=== PATIENT | male | born 1950 | race Caucasian/White ===

== ENCOUNTER 2023-12-02 13:45 | Inpatient (IN) | payer MEDICARE, BC, SELFPAY ==
[2023-12-02] VITALS (9 sets, daily range): BP systolic 126–150; BP diastolic 56–93; BMI 28.9
--- NOTE | 2023-12-02 14:25 | HPS.HSE ---
Addendum entered and electronically signed by Da Menon MD 12/03/23 16:50:
I saw and examined the patient.
The PA's note was reviewed and I agree with the note.
Comment:
I met with Mr. Grant at the bedside, significant multivessel CAD with proximal LAD involvement. Was found to have an abnormal stress test, then found to be in afib, underwent LHC and was found to have significant disease with 99% lesion in the
proximal LAD. He is asymptomatic and denies any chest pain or pressure on our consultation. We discussed the risks and benefits of surgical revascularization. I offered CABG x 3 with concomitant LA MAZE and ÁLVARO Exclusion. He accepts the risks
associated with surgery and wishes to move forward. I plan to put him on with me for tomorrow with send time of 10am.
Thank you for involving me in the care of this patient. Please feel free to contact me with any questions or concerns.
Da Menon MD, MS
Cardiothoracic Surgeon
[facility]
This dictation was created using the [employer] dictation system. Please excuse any grammatical, typographical, or 'sound alike' errors.
Original Note:
Family Physician
-
Family Physician: None
Fashion Buyer: Saul
Chief Complaint
-
Atrial Fibrillation
History of Present Illness
73-year-old male with past medical history of atrial fibrillation s/p ablation at [place] on Xarelto was seen by his education rn a few weeks ago and was found to be in atrial fibrillation. Due to the atrial fibrillation patient was scheduled for
cardioversion today, however, given his history patient was taken for a left heart cath today. 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
mm in diameter), there is a 99% mid LAD lesion right after the takeoff of the first large diagonal branch and a 80% apical LAD stenosis, 50 to 60% long diffuse tubular mid left circumflex lesion, and 60% proximal RCA, and 70% mid RCA stenosis. Due
to these findings patient was transferred to [facility] for CABG evaluation.
Medical History
Past Medical History
Past Medical History: Reports Arrhythmia and CAD
Past Surgical History: Reports Other
Additional Past Surgical History:
ablation in 2021
ankle surgery
Social History
Tobacco: Non-smoker
Alcohol: Occasional
Drug: None
Personal:
Living: With Family
Employment: Retired
Family History
Family History: Diabetes
Allergies / Home Medications
Allergies reflects when Allergies were last updated in [facility].
Home Medications with original date entered in [facility]
Allergy/Medication List:
None
Review of Systems
-
History Source: Patient
A 12 point ROS was completed and negative except as noted: Yes
Constitutional: Reports No Symptoms
EENT: Reports No Symptoms
Respiratory: Reports No Symptoms
Cardiac: Reports No Symptoms
Abdomen/GI: Reports No Symptoms
: Reports No Symptoms
Musculoskeletal: Reports No Symptoms
Skin: Reports No Symptoms
Neurological: Reports No Symptoms
Endocrine: Reports No Symptoms
Hematologic/Lymphatic: Reports No Symptoms
Psych: Reports No Symptoms
Physical Exam
Vital Signs
Vital Signs
Temp Resp Pulse Ox
98.0 F 18 98
12/02/23 14:00 12/02/23 14:00 12/02/23 14:00
Physical Exam
General: Well Developed
HEENT: NormoCephalic
Respiratory: Clear
Cardiac: S1/S2
Breast: N/A
GI: Soft and Other (Obese)
Rectal: Deferred by Provider
Genito-urinary: Deferred by me
Musculoskeletal: No Clubbing
Skin: Warm and Dry
Neuro: AO x 3 and No Motor Deficits
Hematologic/Lymphatic: No Lymphadenopathy
Psych: Calm
Laboratory Results
-
Active Medications
Acetaminophen (Acetaminophen 325 Mg Tablet) 650 mg PO Q4HPRN PRN
PRN Reason: mild pain/REBOLLAR/temp> 100.4F
Stop: 12/30/23 12:56
Al Hydrox/Mg Hydrox/Simethicone (Mag/Al/Simethicone Suspension 30 Ml Cup) 30 ml PO Q6HPRN PRN
PRN Reason: Heartburn
Stop: 12/30/23 12:56
Albuterol/Ipratropium (Ipratropium 0.5/Albuterol 3 Mg (3 Ml Ampul)) 3 ml INH R Q4HPRN PRN; Protocol
PRN Reason: shortness of breath
Aspirin (Aspirin 81 Mg Chewable Tablet) 81 mg PO DAILY STEF
Stop: 12/31/23 07:59
Atorvastatin Calcium (Atorvastatin (Lipitor) 80 Mg Tablet) 80 mg PO QPM STEF
Stop: 12/30/23 17:59
Magnesium Hydroxide (Milk Of Magnesia 30 Ml Cup) 15 ml PO HSPRN PRN
PRN Reason: constipation
Stop: 12/30/23 12:56
Ondansetron HCl (Ondansetron 4 Mg/2 Ml Vial) 4 mg IV Q6HPRN PRN
PRN Reason: nausea and vomiting
Stop: 12/30/23 12:56
Polyethylene Glycol (Polyethylene Glycol Powder 17 Grams Packet) 17 grams PO DAILY STEF
Stop: 12/31/23 07:59
Sennosides (Sennosides (Senokot) 8.6 Mg Tablet) 8.6 mg PO BID STEF
Stop: 12/30/23 19:59
Vital Signs
Temp Pulse Resp BP Pulse Ox
98.0 F 65 18 142/88 98
12/02/23 14:00 12/02/23 15:45 12/02/23 14:00 12/02/23 15:00 12/02/23 15:30
I&O
11/30/23 12/01/23 12/02/23 12/03/23
06:59 06:59 06:59 06:59
Intake Total 500 / 500
Balance 500 / 500
Lab Results
12/02/23 15:34
12/02/23 15:34
PT 13.3 Sec (11.4-14.6) 12/02/23 15:34
INR 1.03 12/02/23 15:34
APTT 30.8 Sec (23.4-35.0) 12/02/23 15:34
Impression/Plan
-
IMPRESSION:
73-year-old male transferred from [facility] for CABG evaluation after left heart cath.
PLAN:
#CAD
-Patient's case will be discussed with attending physician. Further details regarding surgical timing intervention will be determined after attending physicians full evaluation.
-Routine preoperative cardiothoracic surgery orders will be initiated.
-STS risk stratification score will be calculated after preoperative testing is complete
-Continue heparin gtt
- Monitor for CP; if CP occurs will start NTG gtt
- Stat EKG
-Continue aspirin and Lipitor
-Was previously on Jardiance but it was discontinued 3 days ago
- Cardiology consulted
#Atrial fibrillation
-Continue Cardizem p.o.
-Continue heparin drip
-Previously on Xarelto; last dose 2 to 3 days ago per patient
-Per patient, he was initiated on Tikosyn at home but only took 1 dose.
--- NOTE | 2023-12-02 14:50 | CON.CAR ---
Addendum entered and electronically signed by Cisco Sears MD 12/02/23 16:20:
I saw and examined the patient.
The METALLURGY TEACHER or PA's note was reviewed and I agree with the note.
Comment: General: Well developed, well nourished in NAD.
Neck: Supple, no JVD, HJR, carotids +2 B/L, no bruits bilaterally.
Heart: Non displaced PMI, irregular, no murmurs, No S3, S4, no rubs.
Lungs: Clear to auscultation bilaterally, no wheeze, rhonchi, rubs bilaterally,
normal expiratory phase.
Extremities: No clubbing, cyanosis or edema bilaterally.
Neuro: Grossly nonfocal, awake, alert and oriented x3.
Chirag has a history of persistent atrial fibrillation on chronic Xarelto, sick sinus syndrome, carotid artery stenosis. He was found to be back in A-fib for the first time since his ablation in March 2022. He was arranged for testing which
included a stress test which was abnormal. His model maker wanted to start him on flecainide but due to abnormal stress test he underwent cardiac catheterization. He is found to have multivessel disease with left main disease and transferred to
[place] for bypass.
Stable cardiology status for bypass surgery. Await CT surgery evaluation. Atrial fibrillation will need to be addressed after revascularization.
Original Note:
Consultation
Consultation Request
Date/Time Consultation Requested: 12/02/2023
Date/Time Consultation Performed: 12/02/2023 at 1500
Requesting Provider: Dr. Menon
Performing Provider: Dr. Sears
Reason for Consultation: [facility] transfer for CABG eval
Medical History
-
History of Present Illness:
HPI: Chirag is a 73 year old male with PMH of persistent atrial fibrillation w/ prior PVI, SSS, carotid artery stenosis, and gout who presented to [facility] as a transfer from [facility] for CABG evaluation. He states he was seen by his model maker for a routine
appointment and was found to be back in atrial fibrillation for the first time since his ablation. He was arranged for testing including a stress test which was abnormal. His primary model maker, Dr. Yip had wanted to start him on Flecainide
as antiarrhythmic, although due to abnormal stress test, needed to exclude coronary disease. He was then arranged for cardiac catheterization today, 12/02/2023 at [facility]. He was round to have multi-vessel disease and was transferred to for CABG
evaluation. He reports he has been active at baseline without limitations and has been asymptomatic both with his afib and with his coronary disease. He feels well currently and denies any chest pain, palpitations, dizziness, or SOB.
PMH:
Persistent atrial fibrillation
prior PVI @ [facility] 04/23/2022
Chronic Xarelto anticoagulation
SSS
Carotid artery stenosis
Colon polyps
Gout
Past Medical History
Past Medical History: Other (In HPI)
Past Surgical History: Cardiac (PVI 2021, [facility] 12/02/2023)
Social History
Tobacco: Non-Smoker
Alcohol: Occasional
Drug: None
Personal:
Living: With Family
Family History
Family History: Reviewed & Not Pertinent
Review of Systems
-
History Source: Patient
All other systems: Negative unless noted
Physical Exam
Vital Signs
Temp Resp Pulse Ox
98.0 F 18 98
12/02/23 14:00 12/02/23 14:00 12/02/23 14:00
Physical Exam
General: Well Developed, Well Nourished and No Apparent Distress
HEENT: Normocephalic, Anicteric and Moist Mucous Membranes
Respiratory: Non Labored Respirations
Cardiac: S1/S2 and Irregular Rhythm
Musculoskeletal: No Clubbing, No Cyanosis and No Edema
Skin: Warm and Dry
Neuro: AO x 3 and Nonfocal/Grossly Intact
Psych: Calm
Impression / Plan
-
Wellness Nurse Rn: Dr. Yip ([facility])
Impression:
Abnormal stress test
MV CAD by cath @[facility] 12/02/2023
Persistent atrial fibrillation
prior PVI @ [facility] 04/23/2022
Chronic Xarelto anticoagulation
SSS
Carotid artery stenosis
Colon polyps
Gout
Echo @[facility] 11/19/2023: EF 57%, trace AR, mild MR, cannot exclude left to right shunting
Lexiscan stress test @[facility] 11/21/2023: Perfusion imaging abnormal with reversible inferoapical defect. Localized apical wall motion with exercise is absent with rest. Imaging consistent with localized inferoapical ischemia.
LHC @[facility] 12/02/2023: Multivessel CAD. Left main: 70% distal left main stenosis. 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 LAD: 99% mid LAD stenosis right after the takeoff of the first large diagonal branch. 80% apical LAD
stenosis. LCx: 50 to 60% long diffuse tubular mid LCx stenosis. RCA: 50% ostial RCA stenosis with 50 to 60% proximal RCA disease. 70% mid RCA lesion just after the takeoff of the RV branch. 50 to 60% distal RCA lesion.
Plan:
-Seen by primary model maker for routine OP follow up and found to be back in afib for the first time since prior PVI in 2021. Stress test and echo ordered for evaluation w/ results as noted above.
-There was consideration to start patient on flecainide, however due to abnormal stress test, was arranged for cath to rule out coronary disease.
-He had LHC at [facility] 12/02/2023 which revealed MV CAD as outlined above. Transferred to for CABG evaluation.
-CT surgery evaluation ongoing.
-Remains in persistent atrial fibrillation on review of telemetry. HR stable on current medications, continue Cardizem 240mg daily.
-On Xarelto for anticoagulation as OP. Continue heparin drip while awaiting CABG. Aspirin 81mg daily started in addition given coronary disease.
-Continue high intensity statin and zetia. LDL 46.
-He is asymptomatic with both his afib and coronary disease. Remains pain free.
-Check EKG
HPI: Chirag is a 73 year old male with PMH of persistent atrial fibrillation w/ prior PVI, SSS, carotid artery stenosis, and gout who presented to [facility] as a transfer from [facility] for CABG evaluation. He states he was seen by his model maker for a routine
appointment and was found to be back in atrial fibrillation for the first time since his ablation. He was arranged for testing including a stress test which was abnormal. His primary model maker, Dr. Yip had wanted to start him on Flecainide
as antiarrhythmic, although due to abnormal stress test, needed to exclude coronary disease. He was then arranged for cardiac catheterization today, 12/02/2023 at [facility]. He was round to have multi-vessel disease and was transferred to for CABG
evaluation. He reports he has been active at baseline without limitations and has been asymptomatic both with his afib and with his coronary disease. He feels well currently and denies any chest pain, palpitations, dizziness, or SOB.
Data Reviewed
-
Labs: Labs Reviewed by me
Old Records: Reviewed
[2023-12-02 15:47] LABS: Hematocrit 43.4 % (39.0-52.0); Hemoglobin 14.7 g/dL (13.0-18.0); Mean Corp Hgb Conc. 33.9 g/dL (33.0-37.0); Mean Corpuscular Hgb 31.7 pg (27.0-31.0); Mean Corpuscular Volume 93.7 fL (80.0-94.0); Mean Platelet Volume 10.8 fL (7.4-10.4); Platelet Count 162 10^3/uL (130-400); Red Blood Cell Count 4.63 10^6/uL (4.70-6.10); White Blood Cell Count 6.6 10^3/uL (4.8-10.8)
[2023-12-02 15:57] LABS: INR 1.03; PT 13.3 Sec (11.4-14.6)
[2023-12-02 15:58] LABS: APTT 30.8 Sec (23.4-35.0)
[2023-12-02 15:59] LABS: ALT (SGPT) 16 U/L (0-50); AST (SGOT) 18 U/L (17-59); Alkaline Phosphatase 60 U/L (38-126); Blood Urea Nitrogen 14 mg/dl (9-20); Carbon Dioxide 26 mmol/L (22-30); Chloride 108 mmol/L (98-107); Estimated Creatinine Clearance 111 ml/min; Glucose 103 mg/dl (70-99); HDL Cholesterol 49 mg/dl; LDL Cholesterol, Calculated 46 mg/dl; Magnesium 2.1 mg/dl (1.6-2.3); Sodium 138 mmol/L (135-145); Total Bilirubin 0.8 mg/dl (0.2-1.3); Total Cholesterol 146 mg/dl (50-199); Total Protein 6.4 g/dl (6.3-8.2); Triglyceride 259 mg/dl (10-149); Very Low Density Lipoprotein 51 mg/dl (0-30); eGFR > 60.00
--- NOTE | 2023-12-02 16:09 | PTCARENOTE ---
Rec'd pt from [facility], placed on monitor. Pt with Rt radial R band from [place]. R band switched to our Band by laborer stores RN's and replaced with 9ml of air. Air removed as per protocol. Pt remains in Afib, denies pain, denies sob. Pt ambulating in room
and in hallway with no difficulties. Labs sent as ordered. Pt sent for ultrasound and CXR at this time. Admission history obtained.
--- NOTE | 2023-12-02 16:37 | CM ---
spoke to pt in room, he is prev indep, lives with his in a 2 story home with a first floor set up . he denies any dme's. plan is for CT surgery eval for CABG, rufus following
[2023-12-02] MEDS: HEPARIN 25000 UNITS/250 ML IV (16:52)
[2023-12-02] MEDS: HEPARIN 4000 UNITS IV (16:55)
[2023-12-02] MEDS: LIPITOR 80 MG PO (18:42)
--- NOTE | 2023-12-02 19:35 | PTCARENOTE ---
Pt sent for CXR and ultrasound. Heparin begun at 1500 units/hr.
[2023-12-02] MEDS: ZETIA 10 MG PO (22:41)
[2023-12-02 23:07] LABS: APTT 96.2 Sec (23.4-35.0)
[2023-12-03] VITALS (7 sets, daily range): BP systolic 129–146; BP diastolic 78–96; BMI 28.5
--- NOTE | 2023-12-03 00:23 | PTCARENOTE ---
assumed care of patient at the change of shift. AAOx3. denies any cp/sob. ambulating independently in the room. heparin gtt infusing per protocol. controlled afib on tele 60s-70s. bp stable. R radial site, CDI. + pulses. LLE abrasion present on
admission. cleansed with saline; foam applied. reviewed plan of care with patient and verbalized understanding. call ken within reach. calls appropriately.
--- NOTE | 2023-12-03 04:21 | W.PN.CT ---
Today's Communication / Plan
-
Plan:
-Cont. current meds (Heparin gtt, ASA, Zetia, Cardizem Cd; Cont. to hold Xarelto, avoid SERGIO-I/ARBs)
-Xarelto washout, last dose 4/6 per pt
-Ongoing preop evaluation for CABG
-CTA of neck and chest today
Assessment / Plan
-
Assessment:
73 y/o male transferred from [facility] for CABG evaluation
-Multivessel CAD including 70% distal LM
-Abnormal stress test
-Persistent atrial fibrillation S/P PVI @ [facility] 04/23/2022 (Chronic Xarelto)
-SSS
-Carotid artery stenosis
-Hyperlipidemia
-Colon polyps
-Gout
Discussed patient care with: Cardiology, Nursing, Pharmacy and Care Team
Subjective
-
Date of Service: December 03, 2023
No issues overnight. Denies chest pain/SOB
Objective Data
-
Lab Results
12/02/23 16:01
12/02/23 15:34
PT 13.3 Sec (11.4-14.6) 12/02/23 15:34
INR 1.03 12/02/23 15:34
APTT 96.2 Sec (23.4-35.0) H 12/02/23 22:43
Vital Signs
Vital Signs
Temp Pulse Resp BP Pulse Ox
98.2 F 66 18 142/91 98
12/02/23 22:41 12/03/23 00:00 12/02/23 22:41 12/02/23 22:41 12/02/23 22:41
CT Intake/Output/Weight
12/02/23 12/02/23 12/03/23
06:59 18:59 06:59
Intake Total 500 / 1840 1340 / 1840
Balance 500 / 1840 1340 / 1840
SaO2: 98 (RA)
Physical Exam
-
General: Awake, Oriented and AOx3
Cardiovascular: Irregular rate & rhythm and No Murmurs
Respiratory: Clear
Extremities: No Edema
Data Reviewed
-
Lab Results: Results Reviewed
Medications: Active Meds Reviewed
Chest X-Ray: Report Reviewed and Image Reviewed
ECG: Report Reviewed and Image Reviewed
[2023-12-03 05:31] LABS: APTT 82.4 Sec (23.4-35.0)
[2023-12-03 05:41] LABS: Troponin I < 0.012 ng/ml
[2023-12-03] MEDS: HEPARIN 25000 UNITS/250 ML IV (07:10)
[2023-12-03] MEDS: LOW STRENGTH ASPIRIN 81 MG PO (07:14)
[2023-12-03] MEDS: CARDIZEM CD 240 MG PO (07:14)
--- NOTE | 2023-12-03 08:00 | PTCARENOTE ---
Pt received from shift superintendent caustic cresylate RN. Alyssa3, resting in bed. Afib on director of cardiac rehabilitation HRs 60s-80s. Therapeutic on Heparin gtt @ 1500 units/hr. R radial dressing CDI. RUE neurovascular checks WDL. Continuing CABG workup. Tentatively scheduled for OR
tomorrow. Assessment documented. Pt without complaint at this time.
[2023-12-03 08:52] LABS: Glycohemoglobin (HgbA1c) 5.8 % (4.0-5.6)
--- NOTE | 2023-12-03 09:42 | W.PN.CARDCBS ---
Addendum entered and electronically signed by Lalito Calvert MD 12/03/23 11:02:
I saw and examined the patient.
The Senior Executive Assistant's note was reviewed and I agree with the note.
Comment: Briefly, 73-year-old man past medical history of persistent atrial fibrillation who underwent left heart catheterization following abnormal stress test and was found to have multivessel CAD
Currently asymptomatic from a cardiovascular standpoint, resting comfortably in the IVU
He is being maintained on aspirin, statin and heparin drip
Appreciate CT surgery input, ongoing evaluation of possible CABG/maze/left atrial appendage clip
We will continue to follow along with you
Original Note:
Today's Communication / Plan
-
continue IV heparin, asa, cardizem, lipitor, zetia.
CT surgery eval underway
tentatively for CABG/MAZE/ÁLVARO clip 12/04/23
Impression / Plan
-
Public Speaking Coach: Dr. Yip ([facility])
Impression:
Abnormal stress test
MV CAD by cath @[facility] 12/02/2023
Persistent atrial fibrillation
prior PVI @ [facility] 04/23/2022
Chronic Xarelto anticoagulation
SSS
Carotid artery stenosis
Colon polyps
Gout
Echo @[facility] 11/19/2023: EF 57%, trace AR, mild MR, cannot exclude left to right shunting
Lexiscan stress test @[facility] 11/21/2023: Perfusion imaging abnormal with reversible inferoapical defect. Localized apical wall motion with exercise is absent with rest. Imaging consistent with localized inferoapical ischemia.
LHC @[facility] 12/02/2023: Multivessel CAD. Left main: 70% distal left main stenosis. 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 LAD: 99% mid LAD stenosis right after the takeoff of the first large diagonal branch. 80% apical LAD
stenosis. LCx: 50 to 60% long diffuse tubular mid LCx stenosis. RCA: 50% ostial RCA stenosis with 50 to 60% proximal RCA disease. 70% mid RCA lesion just after the takeoff of the RV branch. 50 to 60% distal RCA lesion.
Plan:
-Seen by primary s3b multi sensor operator for routine OP follow up and found to be back in afib for the first time since prior PVI in 2021. Stress test and echo ordered for evaluation w/ results as noted above.
-trop negative
-remains CP free on IV heparin
-for CT head and neck today
-if preop eval ok, tentatively planned for CABG/MAZE/ÁLVARO clip in AM. d/w CT surgery
-remains in rate controlled afib on tele overnight. occasional pauses overnight of <2.5 seconds. remains on OP cardizem 240mg daily
-xarelto held as of 11/29. continue asa
-continue lipitor 80mg QPM and zetia.
-hgbA1c 5.8%
-will follow perioperatively
HPI: Chirag is a 73 year old male with PMH of persistent atrial fibrillation w/ prior PVI, SSS, carotid artery stenosis, and gout who presented to [facility] as a transfer from [facility] for CABG evaluation. He states he was seen by his s3b multi sensor operator for a routine
appointment and was found to be back in atrial fibrillation for the first time since his ablation. He was arranged for testing including a stress test which was abnormal. His primary s3b multi sensor operator, Dr. Yip had wanted to start him on Flecainide
as antiarrhythmic, although due to abnormal stress test, needed to exclude coronary disease. He was then arranged for cardiac catheterization today, 12/02/2023 at [facility]. He was round to have multi-vessel disease and was transferred to for CABG
evaluation. He reports he has been active at baseline without limitations and has been asymptomatic both with his afib and with his coronary disease. He feels well currently and denies any chest pain, palpitations, dizziness, or SOB.
Progress Note - Public Speaking Coach
Subjective
Date of Service: December 03, 2023
no issues overnight
Objective
Labs:
12/02/23 16:01
12/02/23 15:34
Labs
Hgb Cancelled 12/02/23 16:01
Hct Cancelled 12/02/23 16:01
Plt Count Cancelled 12/02/23 16:01
PT 13.3 Sec (11.4-14.6) 12/02/23 15:34
INR 1.03 12/02/23 15:34
APTT 82.4 Sec (23.4-35.0) H 12/03/23 04:54
Sodium 138 mmol/L (135-145) 12/02/23 15:34
Potassium 4.0 mmol/L (3.5-5.1) 12/02/23 15:34
BUN 14 mg/dl (9-20) 12/02/23 15:34
Creatinine 0.7 mg/dL (0.7-1.3) 12/02/23 15:34
Glucose 103 mg/dl (70-99) H 12/02/23 15:34
Troponins
12/03/23
04:54
Troponin I < 0.012
Vital Signs and I&O:
Vital Signs
Temp Pulse Resp BP Pulse Ox
97.8 F 75 18 139/79 97
12/03/23 07:16 12/03/23 07:16 12/03/23 07:16 12/03/23 07:16 12/03/23 07:16
Vital Signs
Temp Pulse Resp BP Pulse Ox
97.8 F 75 18 139/79 97
12/03/23 07:16 12/03/23 07:16 12/03/23 07:16 12/03/23 07:16 12/03/23 07:16
Intake & Output
12/01/23 12/02/23 12/03/23 12/04/23
07:59 07:59 07:59 07:59
Intake Total 1840 / 1840 240 / 240
Balance 1840 / 1840 240 / 240
Physical Exam
Physical Exam
GEN: No distress, awake, alert, oriented x3
HEENT: supple, anicteric, mmm, eomi
LUNGS: CTA B/L, no wheezes/rales
CV: Irreg, S1/S2, no murmur
ABD: soft, BS+, NT/ND
EXT: No cyanosis, clubbing, edema
NEURO: Gross non-focal
SKIN: Warm, pink, dry. No rash. R wrist site with dressing c/d/i
--- NOTE | 2023-12-03 15:02 | W.PN.UPDATE ---
Update Note
Progress Note Update
Procedure Type:�Isolated CABG
PERIOPERATIVE OUTCOME ESTIMATE %
Operative Mortality 1.36%
Morbidity & Mortality 5.32%
Stroke 0.553%
Renal Failure 0.575%
Reoperation 2.18%
Prolonged Ventilation 2.72%
Deep Sternal Wound Infection 0.092%
Long Hospital Stay (>14 days) 3.58%
Short Hospital Stay (<6 days)* 44.9%
Clinical Summary
Planned Surgery: Isolated CABG, Urgent, First cardiovascular surgery
Demographics: 73 year old, male, 104kg, 191cm, BMI: 28.5 kg/m�
Lab Values: Creatinine: 0.7 mg/dL, Hematocrit: 43.4%, WBC Count: 6.6 10�/�L, Platelet Count: 637292 cells/�L
Substance Abuse: Never smoker, Alcohol use: <=1 drink/week
Risk Factors / Comorbidities: Hypertension
Cardiac Status: Ejection Fraction = 50%
Coronary Artery Disease: 3 vessels diseased, Left Main Stenosis >=50%, No coronary symptoms
Valve Disease: Trivial/Trace AR, Mild MR
Arrhythmia: Recent A-fib, Paroxysmal, Remote Sick Sinus Syndrome
--- NOTE | 2023-12-03 16:58 | CM ---
spoke to pt in room, we discussed preop CABG including sternal and driving restrictions. he is prev indep, lives with his in he has 2 he a 2 story home with a first floor set up. he has 2 steps to enter. he has the cardiac surgery book. he
is agreeable to a f/u visit from the ct transitional care nurses after dc. cm role explained and all questions answered. plan is for CABG in am
[2023-12-03] MEDS: LIPITOR 80 MG PO (17:11)
[2023-12-03] MEDS: ZETIA 10 MG PO (22:44)
--- NOTE | 2023-12-03 23:45 | PTCARENOTE ---
Pt clipped. Bathed w/ CHG soap. Heparin gtt infusing at 1500units/hr. Pt aware of NPO status after midnight. Tele remains Afib 60-80s. Offers no c/o at this time. Assessment completed as documented. Pt ambulating around room; steady gait. Currently
in bed; call suellen w/in reach.
[2023-12-04] VITALS (9 sets, daily range): BP systolic 95–153; BP diastolic 59–97; BMI 28.3
[2023-12-04] MEDS: HEPARIN 25000 UNITS/250 ML IV (00:05)
[2023-12-04 05:23] LABS: Hematocrit 46.9 % (39.0-52.0); Mean Corp Hgb Conc. 34.1 g/dL (33.0-37.0); Mean Corpuscular Hgb 31.4 pg (27.0-31.0); Mean Corpuscular Volume 92.1 fL (80.0-94.0); Mean Platelet Volume 10.8 fL (7.4-10.4); Platelet Count 156 10^3/uL (130-400); Red Blood Cell Count 5.09 10^6/uL (4.70-6.10); Red Cell Dist. Width 13.5 % (11.5-14.5); White Blood Cell Count 5.9 10^3/uL (4.8-10.8)
[2023-12-04] MEDS: PROTONIX 40 MG PO (05:38)
[2023-12-04] MEDS: BACTROBAN 2% OINTMENT 1 APPLIC NASAL ×2 (05:38→20:12)
[2023-12-04] MEDS: MAGNESIUM OXIDE 500 MG PO (05:38)
[2023-12-04] MEDS: LOPRESSOR 25 MG PO (05:38)
--- NOTE | 2023-12-04 05:45 | PTCARENOTE ---
B/l BPs taken. Wt obtained. Second CHG bath completed.
--- NOTE | 2023-12-04 07:27 | PTCARENOTE ---
Pt received from restaurant shift leader RN. Alyssa3, OOB in chair. Remains in Afib on cardiac technician 60s-80s. Heparin gtt infusing per protocol. Pt NPO since midnight for CABG with Dr. Menon today. Assessment documented.
[2023-12-04] MEDS: LOW STRENGTH ASPIRIN 81 MG PO ×2 (07:57→20:13)
[2023-12-04] MEDS: CARDIZEM CD PO (07:58)
[2023-12-04 10:29] LABS: ACT+ - POC 104 Seconds (82-134)
[2023-12-04 10:35] LABS: B.E. - POC -0.2 mmol/L; Glucose - POC 106 mg/dl (65-99); HCO3 - POC 26 mmol/L (21-29); Hematocrit - POC 43 % PCV (42-52); Hemodilution- POC No; Hemoglobin Calculated - POC 14.6; Ionized Calcium - POC 1.19 mmol/L (1.12-1.27); O2 Saturation %Calculated-POC 99.9 5 (92-96); PCO2 - POC 48 mmHg (35-45); PO2 - POC 363 mmHg (80-100); Potassium - POC 3.5 mmol/L (3.6-5.0); Sodium - POC 144 mmol/L (135-145); pH - POC 7.35 (7.35-7.45)
[2023-12-04 10:46] LABS: Urine Albumin Negative (Neg - Trace); Urine Bilirubin Negative (Negative); Urine Character Clear (Clear); Urine Color Yellow; Urine Glucose Negative (Negative); Urine Ketone Negative (Negative); Urine Leukocyte Negative (Negative); Urine Nitrite Negative (Negative); Urine Occult Blood 2+ (Negative); Urine Urobilinogen Negative (Neg - 1+); Urine pH 6.5 (5.0-9.0)
[2023-12-04 11:14] LABS: Urine Red Blood Cell 0-2 /HPF (0-2); Urine White Cell 0-2 /HPF (0-5)
--- NOTE | 2023-12-04 11:16 | CM ---
Chart reviewed. Patient is in the OR today. Patient is independent of ADLS, lives with his in a 2 STH, 1st floor set up, 2 LOUISA, 0 DME. Plan is for the patient to return home with CT Transitional RN. CM to follow
[2023-12-04 12:45] LABS: ACT+ - POC 631 Seconds (82-134)
[2023-12-04 13:15] LABS: B.E. - POC 3.9 mmol/L; Glucose - POC 125 mg/dl (65-99); HCO3 - POC 28 mmol/L (21-29); Hematocrit - POC 38 % PCV (42-52); Hemodilution- POC Yes; Hemoglobin Calculated - POC 12.9; Ionized Calcium - POC 1.02 mmol/L (1.12-1.27); O2 Saturation %Calculated-POC 99.9 5 (92-96); PCO2 - POC 41 mmHg (35-45); PO2 - POC 281 mmHg (80-100); Potassium - POC 5.1 mmol/L (3.6-5.0); Sodium - POC 140 mmol/L (135-145); pH - POC 7.45 (7.35-7.45)
[2023-12-04 13:19] LABS: ACT+ - POC 594 Seconds (82-134)
[2023-12-04 13:51] LABS: ACT+ - POC 627 Seconds (82-134)
[2023-12-04 13:52] LABS: B.E. - POC 4.9 mmol/L; Glucose - POC 132 mg/dl (65-99); HCO3 - POC 29 mmol/L (21-29); Hematocrit - POC 35 % PCV (42-52); Hemodilution- POC Yes; Hemoglobin Calculated - POC 11.8; Ionized Calcium - POC 1.08 mmol/L (1.12-1.27); O2 Saturation %Calculated-POC 99.9 5 (92-96); PCO2 - POC 39 mmHg (35-45); PO2 - POC 313 mmHg (80-100); Potassium - POC 5.1 mmol/L (3.6-5.0); Sodium - POC 139 mmol/L (135-145); pH - POC 7.48 (7.35-7.45)
[2023-12-04 14:22] LABS: ACT+ - POC 93 Seconds (82-134)
[2023-12-04 14:23] LABS: B.E. - POC 0.6 mmol/L; Glucose - POC 128 mg/dl (65-99); HCO3 - POC 26 mmol/L (21-29); Hematocrit - POC 36 % PCV (42-52); Hemodilution- POC Yes; Hemoglobin Calculated - POC 12.3; Ionized Calcium - POC 1.32 mmol/L (1.12-1.27); O2 Saturation %Calculated-POC 94.6 5 (92-96); PCO2 - POC 43 mmHg (35-45); PO2 - POC 74 mmHg (80-100); Potassium - POC 4.4 mmol/L (3.6-5.0); Sodium - POC 143 mmol/L (135-145); pH - POC 7.39 (7.35-7.45)
--- NOTE | 2023-12-04 15:03 | W.PN.CT.SURG ---
CT Surgery Operative Note
-
CARDIAC SURGERY OPERATIVE REPORT
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
Postoperative Diagnosis: Same
Procedure(s) Performed:
1. Standard sternotomy with aortic and right atrial cannulation
2. Coronary artery bypass grafting x 4 (In situ FELDMAN to LAD, Ao to RSVG to diagonal to OM 2 (largest branch), Ao to RSVG to RPDA)
3. Left atrial modified maze (Encompass clamp, PVI and Posterior LA Wall - Roof and Floor)
4. Left atrial appendage exclusion (35mm Clip)
5. Endoscopic vein harvesting of left lower extremity, right vein not usable
6. Placement temporary ventricular pacing wire
7. Transesophageal echocardiography
Date of Surgery: 12/04/2023
Comorbidities:
1. Multivessel CAD with exertional angina
2. Persistent atrial fibrillation status post ablation
3. Sick sinus syndrome
4. Carotid artery stenosis
5. Colonic polyps
6. Gout
Attending Surgeon: Da Menon MD, MS
Assistants: Jayna Bermudez PA-C (present and necessary to first crusher, endoscopic vein harvest, retraction, suction, exposure, suture management, and wound closure under my direction)
Anesthesiology: Fadi Gonzalez MD and Wili Stallworth CRNA
Scrub and Circulating RNs: Stacey Haider RN, Jenny Sanz RN
Bottom Stop Attacher: Jared Virk CCP
Anesthesia: GETA
EBL: per perfusion records
Products: None
CPB Time: 81 minutes
Aortic Cross Clamp Time: 67 minutes
Indication(s) for Procedures: This is a 73-year-old male with history of persistent atrial fibrillation with prior ablation. He was planned for a cardioversion and underwent workup and was found to have an abnormal stress test which then led to
left heart cath demonstrating significant proximal LAD disease due to his lesion pattern, revascularization was discussed with the patient. He was acceptable risk so we proceeded.
Conduit(s) Quality:
FELDMAN -excellent conduit with good flow, skeletonized
RSVG -left leg vein with minor varicosities but overall good uniformity mildly thickened, acceptable
Target(s) Quality:
RCA/PDA -good quality target/excellent flow with test dosing of antegrade, 60 cc a minute at a pressure of 80
OM -excellent target/good flow with test dose of antegrade flow in approximately 60 cc a minute at a pressure of 80
Diagonal�excellent target with significant flow with test dose of antegrade approximately 80 cc a minute at a pressure of 90
LAD -good quality target/good visual flow in the LAD territory with evidence of pinking up of the myocardium
Findings: Left ventricular ejection fraction preoperatively was normal at 60% with no significant regional wall motion abnormalities. He had minor valvular pathology with trace insufficiency. EF remained the same after surgery with no new regional
wall motion abnormalities. The FELDMAN was harvested in a [] fashion. Following bypass grafting, test dose cardioplegia was given down each distal and confirmed patency and hemostasis. Each distal was probed both proximally and distally to confirm
disease and patency, respectively. After short period of VVI pacing he regained sinus rhythm. No products were given. No inotropic support was required. Ablation lines included bilateral pulmonary vein isolation and posterior left atrial wall,
left atrial appendage exclusion with a 35 mm clip flush the base. The left atrial appendage was verified to be free of any thrombus or debris preoperatively and found to be flush and totally occluded postoperatively.
Description of Procedure: The patient was taken to the operating room. Their identity and procedure to be performed were verified and they were positioned supine on the operating table. Induction via general anesthesia with endotracheal intubation
was performed and central venous access and arterial monitoring were inserted. A preoperative transesophageal echocardiogram was performed to assess cardiac function and valvular function. The patient was then prepped and draped from chin to feet in
a sterile fashion. A preoperative time-out was performed with all members of the team present. A midline chest incision was performed along with median sternotomy. Simultaneous endoscopic access of the right lower extremity for saphenous vein
harvest was obtained along with administration of an initial 5,000 units of IV heparin. The right lower leg vein was not usable and so the left leg vein was then harvested and found to be much better quality. A RulTract sternal retractor was
positioned to exposure the left internal mammary bed. The mammary was harvested and found to have good flow. A bulldog clamp was applied to the distal end of the mammary after dividing it. It was wrapped in a papaverine soaked RayTec and replaced
back into the left hemithorax. The RulTract was exchanged for a median sternal retractor. The innominate vein was isolated. Full heparinization was given (a total of 50,000 units). We created a pericardial well. The aortic cannulation site was
chosen where it was soft, pliable, and free of calcium. Cannulation was performed with an arterial cannula in the ascending aorta and a triple-stage venous cannula through the right atrial appendage. The arterial cannula line had an appropriate
bounce and correlating pressures with test dosing. Next, a root vent/antegrade cannula was inserted into the ascending aorta. The ACT was confirmed to be over 400 and retrograde autologous priming was performed before commencing cardiopulmonary
bypass. At this point the SVC was off of the RPA. The oblique sinus was developed. The encompass clamp was then placed across the transverse sinus and oblique sinus and 3 pairs of successful ablations were performed. The pulmonary
artery was away from the aorta to facilitate a clamp site. The aortic cross-clamp was placed after decreasing the flow on the bypass and mean arterial pressure. A total of 1.2L initial dose of antegrade Del-Nido cardioplegia solution was
given and planned for re-dosing every 75 minutes as necessary. There was rapid electro-mechanical arrest of the heart at 350 cc of cardioplegia. The left ventricle was observed for distention on echocardiogram and manual palpation. Cold slush was
placed into a sponge and topically on the RV while we systemically cooled to 34 degrees centigrade. The heart was then positioned in order to expose the left atrial appendage which was then clipped with a 35 mm clip.
I positioned the heart to expose the distal right coronary at the posterior descending artery. A belkofski blade was used to expose the coronary and perform the arteriotomy. Coronary Saldana scissors were used to enlarge the incision. The saphenous vein
was trimmed and beveled to an appropriate size. The distal anastomosis was performed using 7-0 prolene in an end-to-side fashion. Antegrade cardioplegia was administered into the graft. Appropriate hemostasis and flow were confirmed. The graft was
measured for length to the aorta and cut. A suitable site on the largest branch obtuse marginal was chosen. We dissected and prepared the distal target in a similar fashion. An end-to-side anastomosis was created with a 7-0 prolene. Antegrade
cardioplegia was administered into the graft. Appropriate hemostasis and flow were confirmed. The graft was measured for length to the aorta and cut in order to accommodate a diagonal sequential. The diagonal was then prepped in a similar fashion
and found to be a suitable size target. A [id number]-ia-[id number] anastomosis was created after creating a small venotomy on the underside of the saphenous vein graft. Anastomosis was created with 7-0 Prolene in a running fashion. Occlusion of the distal
sequential found excellent flow down the diagonal vessel which was also hemostatic. A suitable target on the mid/distal left anterior descending was identified. We dissected and prepared the distal target in a similar fashion. We retrieved the FELDMAN
from the chest and created a pericardial opening while being cognizant of the phrenic nerve to facilitate the course of the mammary. The distal end of the mammary was prepped and beveled to size. We verified orientation and length of the VIRIDIANA and
found brisk flow. An end-to-side anastomosis was created with a 7-0 prolene. We temporarily released the bulldog clamp on the mammary to inspect flow. Perfusion to the LAD territory was visualized and hemostasis was confirmed. The bull clamp was
replaced on the mammary. The heart was filled and the root was distended with antegrade cardioplegia to make final assessment of graft length and orientation. We created 2 aortotomies using a #11 blade then a 4.0mm aortic punch. The proximal
anastomoses were created in an end-to-side fashion using 6-0 prolene. At the the same time, we re-warmed to 36.5 degrees centigrade. The bulldog clamp was removed from the mammary. Temporary bipolar ventricular pacing wires were placed on the base
of the right ventricle. The patient was placed in a Trendelenburg position and flows on bypass were lowered. The aortic cross clamp was removed and flows were slowly brought back up. A 30-gauge needle was used to de-air the vein grafts. All bypass
grafts were inspected and were free from kinking or twisting. The distal and proximal anastomoses appeared hemostatic. Once transesophageal echocardiography appeared satisfactory for de-airing, the flows were temporarily lowered for root vent
removal. After verifying acceptable parameters, we initiated weaning from cardiopulmonary bypass. Once we were off cardiopulmonary bypass, the venous cannula was clamped and removed. A test dose of protamine was administered and the patient was
monitored for any adverse reaction before resuming protamine. Once half of the protamine dose was delivered, pump suckers were turned off and the systolic blood pressure was lowered for aortic decannulation. The aortic cannula was removed and
pursestrings were tied down. All cannulation sites were oversewn with a 4-0 prolene. The mammary bed was inspected and hemostasis was confirmed. Once the mediastinum was hemostatic, 19Fr Delmar drain was placed in the left pleural cavity and two 24Fr
Delmar drains were placed within the pericardium. The sternum was approximated with 4 #7 single and 3 #8 double stainless steel wires. Fascia was approximated with #1 vicryl suture. The subcutaneous, dermis and epidermis were closed in layers in a
running fashion. The skin wound was cleansed and dressed.
All instrument, sponge, and needle counts were confirmed to be correct x 2 at the end of the operation. The patient was transferred to the cardiac intensive care unit in critical but stable condition.
I, Dr. Da Menon, was present, scrubbed for, and performed all critical elements of this procedure.
Da Menon MD, MS
Cardiothoracic Surgeon
[facility]
This operative dictation was created using the [employer] dictation system. Please excuse any grammatical, typographical, or 'sound alike' errors
[2023-12-04 15:11] LABS: Glucose - Point of Care 154 mg/dl (70-99)
[2023-12-04 15:15] LABS: B.E. 1.7 mmol/L; HCO3 26.6 mmol/L (21-28); Ionized Calcium 1.26 mMOL/L (1.15-1.33); O2 Saturation % 99.7 % (94-98); PCO2 42 mmHg (35-48); PO2 172 mmHg (83-108); Potassium 4.6 mMOL/L (3.5-5.1); Sodium 137 mMOL/L (136-145); pH 7.41 (7.35-7.45)
[2023-12-04 15:20] LABS: Hematocrit 38.3 % (39.0-52.0); Hemoglobin 13.2 g/dL (13.0-18.0); Platelet Count 132 10^3/uL (130-400)
[2023-12-04 15:30] LABS: Blood Urea Nitrogen 13 mg/dl (9-20); Estimated Creatinine Clearance 97 ml/min; Glucose 152 mg/dl (70-99); Magnesium 2.8 mg/dl (1.6-2.3)
--- NOTE | 2023-12-04 15:32 | PTCARENOTE ---
Received pt from [facility] at 1500; pt intubated and sedated; NSR on monitor and VSS; Epicardial V wires set to 30/10 and no pacing noted; + rub; RIJ Cordis/SLIC; Left A-line and PIVx2 all lines leveled and zeroed; Levo, Precedex and Insulin infusing see
flow sheet for details; lungs diminished throughout; CT x3 tp -20 wall suction, no air leak and no crepitus noted; hypoactive bowel sounds; Mcintosh catheter draining clear yellow urine; pulses present by Doppler; no edema noted; all surgical sites
C/D/I; see nursing documentation for further details.
[2023-12-04 15:37] LABS: INR 1.28
[2023-12-04 15:38] LABS: APTT 31.3 Sec (23.4-35.0)
--- NOTE | 2023-12-04 15:40 | PTCARENOTE ---
ET tube size 8 and 22 @ lip, SIMV 550/12/5/5/60%.
[2023-12-04] MEDS: ANCEF 10 IV ×2 (16:03)
[2023-12-04] MEDS: NEURONTIN PO (16:04)
[2023-12-04] MEDS: PACERONE PO (16:04)
[2023-12-04] MEDS: NSS 500 IV (16:04)
[2023-12-04] MEDS: TYLENOL PO (16:04)
--- NOTE | 2023-12-04 16:07 | W.PN.CARDCBS ---
Addendum entered and electronically signed by Lalito Calvert MD 12/04/23 16:36:
I saw and examined the patient.
The Web Systems Developer's note was reviewed and I agree with the note.
Comment: Briefly, 33-year-old man past medical history multivessel CAD who underwent CABG x 4 earlier today
Postoperatively he is in the CVICU where he remains intubated and sedated on low-dose Levophed for hemodynamic support
Currently maintaining sinus rhythm on telemetry, agree with IV amiodarone
Agree with aspirin/Plavix/high intensity statin/beta-pj
We will continue to follow
Original Note:
Today's Communication / Plan
-
continue post op care
starting IV amio gtt. in SR
Impression / Plan
-
Hypoid Gear Generator: Dr. Yip ([facility])
Impression:
Abnormal stress test
MV CAD by cath @[facility] 12/02/2023
Persistent atrial fibrillation
prior PVI @ [facility] 04/23/2022
Chronic Xarelto anticoagulation
SSS
Carotid artery stenosis
Colon polyps
Gout
Echo @[facility] 11/19/2023: EF 57%, trace AR, mild MR, cannot exclude left to right shunting
Lexiscan stress test @[facility] 11/21/2023: Perfusion imaging abnormal with reversible inferoapical defect. Localized apical wall motion with exercise is absent with rest. Imaging consistent with localized inferoapical ischemia.
LHC @[facility] 12/02/2023: Multivessel CAD. Left main: 70% distal left main stenosis. 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 LAD: 99% mid LAD stenosis right after the takeoff of the first large diagonal branch. 80% apical LAD
stenosis. LCx: 50 to 60% long diffuse tubular mid LCx stenosis. RCA: 50% ostial RCA stenosis with 50 to 60% proximal RCA disease. 70% mid RCA lesion just after the takeoff of the RV branch. 50 to 60% distal RCA lesion.
Plan:
-Seen by primary access control specialist for routine OP follow up and found to be back in afib for the first time since prior PVI in 2021. Stress test and echo ordered for evaluation w/ results as noted above.
-s/p In situ FELDMAN to LAD, Ao to RSVG to diagonal to OM 2 (largest branch), Ao to RSVG to RPDA with ÁLVARO clip, MAZE 12/04/23
-RLE vein not usable, so LLE vein harvested and used.
-intubated, sedated
-on levo @2, wean as able
-post op EKG SR with 1st degree av block
-beign started on IV amio @0.5 given history of persistent afib. had been on cardizem and xarelto preoperatively
-was on lipitor 80mg QPM and zetia preop
-hgbA1c 5.8%
-will follow postoperatively
-d/w nursing
HPI: Chirag is a 73 year old male with PMH of persistent atrial fibrillation w/ prior PVI, SSS, carotid artery stenosis, and gout who presented to [facility] as a transfer from [facility] for CABG evaluation. He states he was seen by his access control specialist for a routine
appointment and was found to be back in atrial fibrillation for the first time since his ablation. He was arranged for testing including a stress test which was abnormal. His primary access control specialist, Dr. Yip had wanted to start him on Flecainide
as antiarrhythmic, although due to abnormal stress test, needed to exclude coronary disease. He was then arranged for cardiac catheterization today, 12/02/2023 at [facility]. He was round to have multi-vessel disease and was transferred to for CABG
evaluation. He reports he has been active at baseline without limitations and has been asymptomatic both with his afib and with his coronary disease. He feels well currently and denies any chest pain, palpitations, dizziness, or SOB.
Progress Note - Hypoid Gear Generator
Subjective
Date of Service: December 04, 2023
intubated, sedated
Objective
Labs:
12/04/23 15:05
Labs
Hgb 13.2 g/dL (13.0-18.0) 12/04/23 15:05
Hct 38.3 % (39.0-52.0) L 12/04/23 15:05
Plt Count 132 10^3/uL (130-400) 12/04/23 15:05
PT 16.0 Sec (11.4-14.6) H 12/04/23 15:05
INR 1.28 12/04/23 15:05
APTT 31.3 Sec (23.4-35.0) 12/04/23 15:05
Sodium 138 mmol/L (135-145) 12/02/23 15:34
Potassium 4.0 mmol/L (3.5-5.1) 12/02/23 15:34
BUN 13 mg/dl (9-20) 12/04/23 15:05
Creatinine 0.8 mg/dL (0.7-1.3) 12/04/23 15:05
Glucose 152 mg/dl (70-99) H 12/04/23 15:05
Troponins
12/03/23
04:54
Troponin I < 0.012
Vital Signs and I&O:
Vital Signs
Temp Pulse Resp BP Pulse Ox
97.5 F 77 12 137/74 98
12/04/23 16:01 12/04/23 15:55 12/04/23 16:01 12/04/23 07:08 12/04/23 16:01
Vital Signs
Temp Pulse Resp BP Pulse Ox
97.5 F 77 12 137/74 98
12/04/23 16:01 12/04/23 15:55 12/04/23 16:01 12/04/23 07:08 12/04/23 16:01
Intake & Output
04/08/24 04/09/24 04/10/24 04/11/24
07:59 07:59 07:59 07:59
Intake Total 1839 240 / 240 85.1 / 85.1
Output Total 250 / 250
Balance 1839 240 / 240 -164.9 / -164.9
Physical Exam
Physical Exam
GEN: No distress, intubated
HEENT: supple, mmm
LUNGS: CTA B/L, no wheezes/rales
CV: Reg, S1/S2, no murmur, + rub
ABD: soft, BS+, NT/ND
EXT: No cyanosis, clubbing. Trace ankle edema B/L. caridad wraps to B/L LE noted
NEURO: Gross non-focal
SKIN: Warm, pink, dry. No rash. Sternotomy incision c/d/i. CTs in place. temp wire in place
[2023-12-04 16:17] LABS: Glucose - Point of Care 143 mg/dl (70-99)
[2023-12-04] MEDS: CORDARONE 518 MG IV (16:24)
--- NOTE | 2023-12-04 16:34 | PTCARENOTE ---
Amiodarone drip started per [facility] order.
--- NOTE | 2023-12-04 16:42 | CON.INTV ---
Consultation
Consultation Request
Date/Time Consultation Requested: 12/04/23
Date/Time Consultation Performed: 12/04/23
Reason for Consultation: Critical care
Medical History
-
History of Present Illness:
History obtained from the chart as patient currently intubated and sedated. Patient is a 73-year-old male with history of atrial fibrillation with ablation, who was found to have abnormal stress test. Subsequent cardiac catheterization identifying
multivessel coronary disease. Patient was transferred here for [facility] for bypass evaluation. Patient is status post CAB x 4, left atrial appendage clip, temporary V paced wire placement. We are asked to help from critical care
standpoint 12/14/2023
.
PMH: Atrial fibrillation with history of cardioversion in the past, multivessel coronary disease per catheterization at , sick sinus syndrome, history of carotid artery stenosis, gout, colon polyps
Past Medical History
Past Medical History: None (See above)
Past Surgical History: None (See above)
Social History
Tobacco: Non-smoker
Alcohol: Occasional
Drug: None
Personal:
Living: With Family
Employment: Retired
Family History
Family History: Other (Diabetes)
Allergies / Home Medications
Allergies
Allergy/AdvReac Type Severity Reaction Status Date / Time
No Known Allergies Allergy Verified 12/02/23 15:47
Home Medications
�Medication �Instructions �Recorded �Confirmed �Last Taken �Type
diltiazem HCl 240 mg 240 mg PO DAILY Blood Pressure 12/02/23 12/02/23 Unknown History
capsule,extended release 24 hr
(Cardizem CD)
empagliflozin 10 mg tablet 10 mg PO DAILY Diabetes 12/02/23 12/02/23 11/28/23 History
(Jardiance)
ezetimibe 10 mg tablet 10 mg PO DAILY High Cholesterol 12/02/23 12/02/23 Unknown History
pravastatin 40 mg tablet 40 mg PO DAILY High Cholesterol 12/02/23 12/02/23 Unknown History
rivaroxaban 20 mg tablet (Xarelto) 20 mg PO DAILY Blood Clot 12/02/23 12/02/23 11/29/23 History
Prevention/Tx
Review of Systems
-
Unable to Obtain full review of systems at this time due to: Patient Intubation
Vitals / Labs / Diagnostic Testing
Vital Signs
Temp Pulse Resp BP Pulse Ox
97.5 F 77 12 137/74 98
12/04/23 16:01 12/04/23 15:55 12/04/23 16:01 12/04/23 07:08 12/04/23 16:01
Lab Data
12/04/23 15:05
Laboratory Results
12/04/23 12/04/23 12/04/23
05:02 12:00 15:05
PT 16.0 H
INR 1.28
APTT 69.0 H Cancelled 31.3
pH 7.41
pCO2 42
pO2 172 H
HCO3 26.6
O2 Delivery Level
Microbiology
12/02/23 15:34 Nose MRSA Screen - Final
No Methicillin Resistant Staphylococcus aureus isolated.
Diagnostic Testing:
Physical Exam
-
HEENT: Normocephalic and Other (A-line, IJ, chest tube)
Cardiovascular: S1/S2, Regular Rhythm, Murmur (n), Rub (n), Peripheral Edema (Lower extremity bandage on bilateral dorsal foot) and Other (Lower extremities cool)
Respiratory: Wheeze (n), Rales (n), Rhonchi (n), Non-Labored Respirations and Other (ET tube)
GI: Soft, Non Distended and Non Tender
Neurology: Other (Sedated)
Skin: Good Color (No clubbing, no cyanosis)
General: Comfortable
Assessment
-
73-year-old male with history of atrial fibrillation with PVI in the past, sick sinus syndrome, had recurrent atrial fibrillation, underwent stress test prior to initiation of flecainide. This was abnormal prompting cardiac catheterization at [facility]
which revealed multivessel coronary disease. Patient is status post CAB x 4, 12/04/23
S/p CAB x 4, 12/04/23
Multivessel coronary disease
Abnormal stress test
Atrial fibrillation status post PVI in the past
Sick sinus syndrome
Recently recurrent
Hyperglycemia
Conditions present prior to admission
History of carotid stenosis
50% bilaterally per imaging
History of colon polyps
History of ankle surgery in the past
Gout
Plan/recommendations
At this time, patient remains critical but stable
Has not required blood products, requires occasional low-dose norepinephrine
Remains on volume-cycled ventilation, adequate airway pressures
Chest exam is clear
Postoperative chest x-ray without acute findings, chest tubes in place
Postoperative EKG with first-degree AV block, sinus rhythm
Moving forward
Continue with management per CT surgery
Amiodarone therapy has been started per cardiology, history of atrial fibrillation
Chest tube drainage minimal
Follow hemoglobin
Follow blood sugars
Anticipate extubation later today
Reviewed with critical care nursing
also at bedside
We will follow
TCCT 31
[2023-12-04] MEDS: LIPITOR PO (17:06)
[2023-12-04 17:11] LABS: Glucose - Point of Care 117 mg/dl (70-99)
--- NOTE | 2023-12-04 17:15 | W.PN.UPDATE ---
Update Note
Progress Note Update
IV fluids: 2400
U.O.:� 450
UF:� 1300
Blood:� None
Wires:� V wires
Inotropes:� None
Pressors:� Levophed
Sedatives:� Precedex
�
NEURO: sedated on precedex, pupils +3mm B/L
RESP: #8OT @22cm> /60/5. Lungs clear B/L. 2 mediastinal (30cc on arrival) and L pleural (0cc on arrival) chest tubes to -20cm suction. Sanguineous drainage
CV: RRR +S1, S2, no S3, no�rub, no murmur. Dermabond to median sternotomy. RIJ w/ slick
ABD: round, soft, no BS
EXT: no edema, +2/4 DP pulses B/L, no femoral bruit, XXLE SERGIO wrap intact; left radial A-line intact
: Mcintosh with clear yellow urine
�
A/P: POD #0 s/p CABG x4, MAZE, ÁLVARO clip
NADIYA: EF�nml
- wean and extubate
- monitor hest tube output
- start amio 0.5mg/hr for afib prevention
- Vwires in place; PULL WIRES ON POD #[address] REMOVAL
- wean levo for MAPs >65
- start ASA 81 once extubated and start plavix POD #1
�
# acute surgical blood loss anemia-expected
- trend CBC
�
# Hyperlipidemia
- resume�statin as tolerated
#atrial fib
- cont amio
[2023-12-04 18:02] LABS: Glucose - Point of Care 128 mg/dl (70-99)
[2023-12-04] MEDS: LR 500 IV (18:03)
--- NOTE | 2023-12-04 18:33 | PTCARENOTE ---
Respiratory at bedside and pt placed on CPAP.
[2023-12-04 19:00] LABS: Glucose - Point of Care 135 mg/dl (70-99)
[2023-12-04 19:03] LABS: B.E. 0.5 mmol/L; HCO3 25.4 mmol/L (21-28); Hematocrit 38.9 % (39.0-52.0); Hemoglobin 13.3 g/dL (13.0-18.0); Ionized Calcium 1.21 mMOL/L (1.15-1.33); O2 Saturation % 99.7 % (94-98); PCO2 41 mmHg (35-48); PO2 157 mmHg (83-108); Platelet Count 154 10^3/uL (130-400); Potassium 4.1 mMOL/L (3.5-5.1); Sodium 139 mMOL/L (136-145)
--- NOTE | 2023-12-04 19:25 | PTCARENOTE ---
PT AAOx4 w/o complaints of pain extubated @ 1915, NSR w/ 1 degree on monitor +rub palpable radial pulses, doppler pedial, VSS. 6L NC decreased lung sounds, IS 1750. GI hypoactive. Mcintosh clear yellow adequate output. CTx3 minimal drainage. all
surgical sights CDI. see worklist for detailed assessment
[2023-12-04 20:08] LABS: Glucose - Point of Care 103 mg/dl (70-99)
[2023-12-04] MEDS: LR 250 IV (21:09)
[2023-12-04] MEDS: ANCEF 5 IV (21:27)
[2023-12-04] MEDS: NEURONTIN 100 MG PO (21:28)
[2023-12-04] MEDS: SENOKOT-S 1 TABLET PO (21:28)
[2023-12-04] MEDS: TYLENOL 1000 MG PO (21:28)
[2023-12-04] MEDS: PACERONE 200 MG PO (21:28)
[2023-12-04 22:17] LABS: Glucose - Point of Care 163 mg/dl (70-99)
[2023-12-04] MEDS: ALBUMIN 5% 250 IV (23:12)
[2023-12-05] VITALS (30 sets, daily range): BP systolic 80–140; BP diastolic 53–79; PULSE 84; O2SAT 93–95; BMI 28.7
[2023-12-05 00:11] LABS: Glucose - Point of Care 106 mg/dl (70-99)
--- NOTE | 2023-12-05 00:16 | PTCARENOTE ---
no change from previous assessment
[2023-12-05 02:38] LABS: Glucose - Point of Care 105 mg/dl (70-99)
[2023-12-05 04:10] LABS: Glucose - Point of Care 58 mg/dl (70-99)
[2023-12-05 04:14] LABS: Glucose - Point of Care 106 mg/dl (70-99)
--- NOTE | 2023-12-05 04:23 | PTCARENOTE ---
Levo off, no other changes from previous assessment
[2023-12-05 04:34] LABS: Hematocrit 32.8 % (39.0-52.0); Hemoglobin 11.1 g/dL (13.0-18.0); Mean Corp Hgb Conc. 33.8 g/dL (33.0-37.0); Mean Corpuscular Hgb 30.7 pg (27.0-31.0); Mean Corpuscular Volume 90.6 fL (80.0-94.0); Mean Platelet Volume 10.8 fL (7.4-10.4); Platelet Count 140 10^3/uL (130-400); Red Blood Cell Count 3.62 10^6/uL (4.70-6.10); Red Cell Dist. Width 13.3 % (11.5-14.5); White Blood Cell Count 10.9 10^3/uL (4.8-10.8)
[2023-12-05 04:59] LABS: Blood Urea Nitrogen 17 mg/dl (9-20); Calcium 8.3 mg/dl (8.4-10.2); Carbon Dioxide 25 mmol/L (22-30); Chloride 106 mmol/L (98-107); Estimated Creatinine Clearance 97 ml/min; Glucose 106 mg/dl (70-99); Magnesium 2.2 mg/dl (1.6-2.3); Potassium 4.1 mmol/L (3.5-5.1); Sodium 136 mmol/L (135-145); eGFR > 60.00
--- NOTE | 2023-12-05 05:44 | W.PN.CT ---
Today's Communication / Plan
-
-pod #1
-afib preop and nsr with 1st degree AVB postop
-intermittent 2:1 AV block (hr high 30s-40s)- stopped Amio drip, held BB. Maintain pw
-drips: Levo 1, Insulin, Amio stopped at 11:15 pm d/t AV block
-CT output: 2 meds 175/300, L pleur 35/65 in 12/24 hrs
-got total of 1L ivf postop for hypotension with low cvp and low UO
-waen off Levo, then deline
-current meds (ASA, Plavix, Lipitor, Zetia, Amio, Protonix, Neurontin, Lidocaine patch)
-encourage IS, OOB
Assessment / Plan
-
Assessment:
-s/p CABG x4(In situ FELDMAN to LAD, Ao to RSVG to diagonal to OM 2 (largest branch), Ao to RSVG to RPDA); Left atrial modified maze (Encompass clamp, PVI and Posterior LA Wall - Roof and Floor); LAAE (35mm Clip) on 12/04/[address] Menon, pod #1
-intraop NADIYA: LVEF 60% preop with no wma. Minor valvular pathology with trace insufficiency. EF remained the same postop with no wma. The left atrial appendage was verified to be free of any thrombus or debris preoperatively and found to be flush
and totally occluded postoperatively. After short period of VVI pacing he regained sinus rhythm.
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
-Abnormal stress test
-Persistent atrial fibrillation S/P PVI @ [facility] 04/23/2022 (Chronic Xarelto)
-SSS
-Carotid artery stenosis
-Hyperlipidemia
-Colon polyps
-Gout
-acute postop blood loss anemia- stable, no transfusion
-acute postop hypovolemia with subsequent hypervolemia
-afib preop and nsr with 1st degree AVB postop, intermittent 2:1 AV block
-acute postop atelectasis
Discussed patient care with: Nursing and Care Team
Subjective
Procedure
-s/p CABG x4(In situ FELDMAN to LAD, Ao to RSVG to diagonal to OM 2 (largest branch), Ao to RSVG to RPDA); Left atrial modified maze (Encompass clamp, PVI and Posterior LA Wall - Roof and Floor); LAAE (35mm Clip) on 12/04/[address] Menon
-
Date of Service: December 05, 2023
Objective Data
-
PT 16.0 Sec (11.4-14.6) H 12/04/23 15:05
INR 1.28 12/04/23 15:05
APTT 31.3 Sec (23.4-35.0) 12/04/23 15:05
Vital Signs
Vital Signs
Temp Pulse Resp BP Pulse Ox
99.2 F 92 19 108/65 98
12/05/23 00:12 12/05/23 01:45 12/05/23 01:45 12/05/23 01:00 12/05/23 01:45
CT Intake/Output/Weight
12/04/23 12/04/23 12/05/23
06:59 18:59 06:59
Intake Total 682.6 / 1028.9 346.3 / 1028.9
Output Total 485 / 880 395 / 880
Balance 197.6 / 148.9 -48.7 / 148.9
SaO2: 98
Physical Exam
-
General: Awake and AOx3
Cardiovascular: Regular rate & rhythm, No Murmurs and Rub
Respiratory: Decreased Breath Sounds
Sternum: Stable
Incision: Clean, Dry and Intact
Extremities: No Edema (2+ PT b/l)
Abdomen: soft, nondistended, nontender, decreased + bowel sounds
Data Reviewed
-
Lab Results: Results Reviewed
Medications: Active Meds Reviewed
Chest X-Ray: Report Reviewed and Image Reviewed
ECG: Report Reviewed and Image Reviewed
[2023-12-05 06:17] LABS: Glucose - Point of Care 119 mg/dl (70-99)
[2023-12-05] MEDS: ANCEF 5 IV ×2 (07:03→13:05)
[2023-12-05] MEDS: TYLENOL 1000 MG PO ×3 (07:04→21:30)
--- NOTE | 2023-12-05 07:55 | W.PN.ANS.POP ---
Anesthesia Post Operative
- Anesthesia Post Op Note
Vital Signs Stable-See Nursing Note: Yes
Airway Patent: Yes
Adequate Pain Control: Yes
Change in Mental Status: No
Current Postoperative Nausea & Vomiting: No
Anesthesia Complications: No
General Anesthetic Recall: No
Unplanned Admission: No
Post Op Hydration Adequate: Yes
--- NOTE | 2023-12-05 08:00 | SUR.PHASEI ---
Received pt from warehouse supervisor 3rd shift RN; Pt AAOx3 and resting comfortably in bed; NSR 1st Degree AVB on monitor and VSS; Right IJ Cordis/SLIC, Left A-line and PIV x2; all lines leveled and zeroed; Insulin drip per Glycemic protocol see flow sheet for
details; Lungs diminished; CT x3 to -20 wall suction no air leak and no crepitus noted; IS to 750; hypoactive bowel sounds; Mcintosh catheter removed pt placed on time and amount; pulses resent by Doppler; no edema noted; all surgical sites C/D/I; see
nursing documentation for further details.
[2023-12-05] MEDS: BACTROBAN 2% OINTMENT 1 APPLIC NASAL ×2 (08:14→20:07)
[2023-12-05] MEDS: MAGNESIUM OXIDE 500 MG PO ×2 (08:15→20:07)
[2023-12-05] MEDS: LIDOCAINE 4% PATCH 1 PATCH TOPICAL (08:15)
[2023-12-05] MEDS: NEURONTIN 100 MG PO ×3 (08:15→21:30)
[2023-12-05] MEDS: LOW STRENGTH ASPIRIN 81 MG PO (08:15)
[2023-12-05] MEDS: PLAVIX 75 MG PO (08:15)
[2023-12-05] MEDS: PROTONIX 40 MG PO (08:15)
[2023-12-05] MEDS: SENOKOT-S 1 TABLET PO ×2 (08:15→20:08)
[2023-12-05] MEDS: ZETIA 10 MG PO (08:16)
[2023-12-05 08:21] LABS: Glucose - Point of Care 93 mg/dl (70-99)
--- NOTE | 2023-12-05 08:28 | W.PN.INTV ---
Today's Communication / Plan
Recommendations
Looking good, pain controlled
Incentive spirometry, out of bed to chair
Follow left pleuroparenchymal process
Norepinephrine being weaned
Assessment
-
73-year-old male with history of atrial fibrillation with PVI in the past, sick sinus syndrome, had recurrent atrial fibrillation, underwent stress test prior to initiation of flecainide. This was abnormal prompting cardiac catheterization at [facility]
which revealed multivessel coronary disease. Patient is status post CAB x 4, 12/04/23
S/p CAB x 4, 12/04/23
Multivessel coronary disease
Abnormal stress test
Atrial fibrillation status post PVI in the past
Sick sinus syndrome
Recently recurrent
Hyperglycemia
Conditions present prior to admission
History of carotid stenosis
50% bilaterally per imaging
History of colon polyps
History of ankle surgery in the past
Gout
Plan/recommendations
At this time, patient appears to be improved, in good spirits
Chest exam is clear
Chest x-ray with left pleuroparenchymal process
Remains on norepinephrine. Amiodarone held due to AV block
Chest tube output minimal
Moving forward
Continue with management per CT surgery
Amiodarone currently held due to AV block, had been started per cardiology, history of atrial fibrillation
Chest tube drainage minimal
Norepinephrine being weaned
Follow hemoglobin
Follow blood sugars
Reviewed with critical care nursing
Pain control, IS, out of bed to chair
Subjective Dataa
Subjective Data
Date of Service:
Date of Service: December 05, 2023
Subjective:
Patient is without complaints, sitting in chair. Denies nausea, shortness of breath, pain is controlled. Appears to be at his parents
Objective Data
Data Reviewed
Vital Signs / I&O / Oxygen:
Vital Signs
Temp Pulse Resp BP Pulse Ox
98.2 F 86 17 93/58 97
12/05/23 08:00 12/05/23 08:20 12/05/23 08:20 12/05/23 08:00 12/05/23 08:05
Intake and Output
12/04/23 12/05/23 12/06/23
06:59 06:59 06:59
Intake Total 240 / 240 1124.8 / 1550.9 448.4 / 448.4
Output Total 1150 / 1200 120 / 120
Balance 240 / 240 -25.2 / 350.9 328.4 / 328.4
SaO2 [CPAP] 100
SaO2 [SIMV] 98
SaO2 [A/C] 100
SaO2 97
Nasal Cannula flow liters per 2
minute
Physical Exam
General: Other (IJ)
HEENT: Normocephalic and Anicteric
Cardiovascular: S1-S2 and Regular Rhythm
Respiratory: Wheeze (n), Crackles (n), Rhonchi (n), Chest Tube and Other (Decreased at base)
GI: Soft, Non Distended and Non Tender
Neurology: Awake, Alert and No Motor Deficits
Skin: Jaundice (n) and Rash (n)
Labs/Micro/Reports
Lab Data
12/05/23 04:03
12/05/23 04:03
Laboratory Results
12/04/23 12/04/23 12/04/23
12:00 15:05 18:57
PT 16.0 H
INR 1.28
APTT Cancelled 31.3
pH 7.41 7.40
pCO2 42 41
pO2 172 H 157 H
HCO3 26.6 25.4
O2 Delivery Level
Microbiology
12/02/23 15:34 Nose MRSA Screen - Final
No Methicillin Resistant Staphylococcus aureus isolated.
--- NOTE | 2023-12-05 10:00 | PTCARENOTE ---
Left A-line, SLIC and Left Pleural chest tube removed per CV ROLLER CLEANER order. Epicardial V wires insulated; NSR 1st degree AVB on monitor and VSS; Pt OOB x2 to chair.
[2023-12-05 10:03] LABS: Glucose - Point of Care 138 mg/dl (70-99)
--- NOTE | 2023-12-05 11:03 | CM ---
Chart reviewed. Patient is OOB sitting in the chair, at bedside. Patient is independent of ADLS, lives with his in a 2 STH, 1st floor set up, 2 LOUISA, 0 DME. Plan is for the patient to return home with CT Transitional RN. CM to follow
[2023-12-05 12:05] LABS: Glucose - Point of Care 102 mg/dl (70-99)
--- NOTE | 2023-12-05 12:15 | PTCARENOTE ---
NSR 1st Degree AVB on monitor and VSS; assessment unchanged.
[2023-12-05] MEDS: NSS IV (13:05)
--- NOTE | 2023-12-05 13:08 | W.PN.CARDCBS ---
Addendum entered and electronically signed by Gregor Monge MD 12/05/23 18:18:
Patient states he feels well postop day 1, sitting in chair, at bedside. Second-degree AV block last night, amiodarone and metoprolol on hold
Allergies, meds, PMH/PSH/SH//FH: reviewed
ROS negative except as above
97/77, pulse 85, respirate 20, afebrile
Head neck exam unremarkable, lungs predominantly clear slightly decreased left base, regular rate and rhythm, no obvious murmurs or rubs, abdomen benign, both legs wrapped in Raheel, no edema
Hemoglobin 11.1, BUN and creatinine 17 and 0.86
Chest x-ray chest tubes, atelectasis/infiltrate left base IJ in place EKG: Sinus rhythm first-degree AV block
Impression:
MV CAD by cath @[facility] 12/02/2023
s/p In situ FELDMAN to LAD, Ao to RSVG to diagonal to OM 2 (largest branch), Ao to RSVG to RPDA with ÁLVARO clip, MAZE 12/04/23
History of persistent atrial fibrillation, now sinus rhythm
prior PVI @ [facility] 04/23/2022
Postoperative second-degree AV block
SSS
Carotid artery stenosis
Colon polyps
Gout
Echo @[facility] 11/19/2023: EF 57%, trace AR, mild MR, cannot exclude left to right shunting
Plan:
Overall looks well postop day 1
Continue to observe for A-fib/second-degree AV block
Original Note:
Today's Communication / Plan
-
continue post op care
follow rhythm. consider resuming low dose lopressor this evening, and trial of low dose po amio in next 24-48 hours pending BP/HR trends
Impression / Plan
-
Zigzag Tunnel Elastic Operator: Dr. Yip ([facility])
Impression:
Abnormal stress test
MV CAD by cath @[facility] 12/02/2023
s/p In situ FELDMAN to LAD, Ao to RSVG to diagonal to OM 2 (largest branch), Ao to RSVG to RPDA with ÁLVARO clip, MAZE 12/04/23
Persistent atrial fibrillation
prior PVI @ [facility] 04/23/2022
Chronic Xarelto anticoagulation
SSS
Carotid artery stenosis
Colon polyps
Gout
Echo @[facility] 11/19/2023: EF 57%, trace AR, mild MR, cannot exclude left to right shunting
Lexiscan stress test @[facility] 11/21/2023: Perfusion imaging abnormal with reversible inferoapical defect. Localized apical wall motion with exercise is absent with rest. Imaging consistent with localized inferoapical ischemia.
LHC @[facility] 12/02/2023: Multivessel CAD. Left main: 70% distal left main stenosis. 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 LAD: 99% mid LAD stenosis right after the takeoff of the first large diagonal branch. 80% apical LAD
stenosis. LCx: 50 to 60% long diffuse tubular mid LCx stenosis. RCA: 50% ostial RCA stenosis with 50 to 60% proximal RCA disease. 70% mid RCA lesion just after the takeoff of the RV branch. 50 to 60% distal RCA lesion.
Plan:
-s/p In situ FELDMAN to LAD, Ao to RSVG to diagonal to OM 2 (largest branch), Ao to RSVG to RPDA with ÁLVARO clip, MAZE 12/04/23
-doing well. reports pain adequately controlled
-RLE vein not usable, so LLE vein harvested and used.
-off pressors. did require ~1L LR for hypotension
-had brief 2:1 heart block with drop in HRs to 40s on IV amio gtt last evening, so stopped and BB held. remains in SR with 1st degree av block at present. consider resuming low dose lopressor tonight if BP/HRs remain stable. if stable, could
consider retrial of low dose amioin next 24- 48 hours. he had persistent afib preop s/p MAZE. he had been on cardizem and xarelto preop
-continue asa, plavix
-continue OP lipitor 80mg QPM and zetia
-hgbA1c 5.8%
-continue post op care, OOB/IS
-d/w nursing, CT surgery PA. d/w patient and family at bedside
HPI: Chirag is a 73 year old male with PMH of persistent atrial fibrillation w/ prior PVI, SSS, carotid artery stenosis, and gout who presented to [facility] as a transfer from [facility] for CABG evaluation. He states he was seen by his farm machinery erector for a routine
appointment and was found to be back in atrial fibrillation for the first time since his ablation. He was arranged for testing including a stress test which was abnormal. His primary farm machinery erector, Dr. Yip had wanted to start him on Flecainide
as antiarrhythmic, although due to abnormal stress test, needed to exclude coronary disease. He was then arranged for cardiac catheterization today, 12/02/2023 at [facility]. He was round to have multi-vessel disease and was transferred to for CABG
evaluation. He reports he has been active at baseline without limitations and has been asymptomatic both with his afib and with his coronary disease. He feels well currently and denies any chest pain, palpitations, dizziness, or SOB.
Progress Note - Zigzag Tunnel Elastic Operator
Subjective
Date of Service: December 05, 2023
reports pain well controlled. no SOB, palpitations
Objective
Labs:
12/05/23 04:03
12/05/23 04:03
Labs
Hgb 11.1 g/dL (13.0-18.0) L 12/05/23 04:03
Hct 32.8 % (39.0-52.0) L 12/05/23 04:03
Plt Count 140 10^3/uL (130-400) 12/05/23 04:03
PT 16.0 Sec (11.4-14.6) H 12/04/23 15:05
INR 1.28 12/04/23 15:05
APTT 31.3 Sec (23.4-35.0) 12/04/23 15:05
Sodium 136 mmol/L (135-145) 12/05/23 04:03
Potassium 4.1 mmol/L (3.5-5.1) 12/05/23 04:03
BUN 17 mg/dl (9-20) 12/05/23 04:03
Creatinine 0.8 mg/dL (0.7-1.3) 12/05/23 04:03
Glucose 106 mg/dl (70-99) H 12/05/23 04:03
Troponins
12/03/23
04:54
Troponin I < 0.012
Vital Signs and I&O:
Vital Signs
Temp Pulse Resp BP Pulse Ox
97.7 F 87 20 107/53 97
12/05/23 09:59 12/05/23 13:00 12/05/23 13:02 12/05/23 13:00 12/05/23 13:02
Vital Signs
Temp Pulse Resp BP Pulse Ox
97.7 F 87 20 107/53 97
12/05/23 09:59 12/05/23 13:00 12/05/23 13:02 12/05/23 13:00 12/05/23 13:02
Intake & Output
12/03/23 12/04/23 12/05/23 12/06/23
07:59 07:59 07:59 07:59
Intake Total 1839 240 / 240 1550.9 / 1573.2 130.2 / 130.2
Output Total 1200 / 1270 170 / 170
Balance 1839 / 1839 240 / 240 350.9 / 303.2 -39.8 / -39.8
Physical Exam
Physical Exam
GEN: No distress, awake, alert, oriented x3. sitting in chair
HEENT: supple, anicteric, mmm, eomi
LUNGS: Crackles B/L bases, no wheezes
CV: Reg, S1/S2, no murmur
ABD: soft, BS+, NT/ND
EXT: No cyanosis, clubbing. trace edema of B/L LE
NEURO: Gross non-focal
SKIN: Warm, pink, dry. No rash. Sternotomy dressing c/d/i. CT in place. temp wire. B/L LE raheel wraps
[2023-12-05 14:03] LABS: Glucose - Point of Care 146 mg/dl (70-99)
[2023-12-05 15:22] LABS: Glucose - Point of Care 139 mg/dl (70-99)
--- NOTE | 2023-12-05 15:27 | PTCARENOTE ---
Insulin drip discontinued per protocol.
[2023-12-05] MEDS: PACERONE 200 MG PO ×2 (16:38→21:30)
[2023-12-05] MEDS: LIPITOR 80 MG PO (17:15)
[2023-12-05 17:16] LABS: Glucose - Point of Care 124 mg/dl (70-99)
--- NOTE | 2023-12-05 18:24 | PTCARENOTE ---
Pt not voided since Mcintosh Catheter removal this am; pt voided 20mls and post bladder scan resulted 92mls; updated CV FOAM RUBBER CURER, BMP sent and orders placed by CV FOAM RUBBER CURER for Norepinephrine at 1 mcg/min and LR 250mls Bolus.
[2023-12-05] MEDS: LEVOPHED 250 IV (18:30)
[2023-12-05 18:48] LABS: Calcium 8.5 mg/dl (8.4-10.2); Carbon Dioxide 27 mmol/L (22-30); Chloride 97 mmol/L (98-107); Estimated Creatinine Clearance 77 ml/min; Glucose 163 mg/dl (70-99); Potassium 4.1 mmol/L (3.5-5.1); Sodium 131 mmol/L (135-145); eGFR > 60.00
[2023-12-05] MEDS: LR 250 IV (18:57)
[2023-12-05 19:03] LABS: Blood Urea Nitrogen 26 mg/dl (9-20)
--- NOTE | 2023-12-05 20:00 | PTCARENOTE ---
PT AAOx4 w/ minimal complaints of pain NSR w/ 1 degree on monitor palpable radial pulses, doppler pedial, VSS. RA decreased lung sounds, IS 1700. GI hypoactive. eddi concentrated bladder scan 230. CTx2 meads w/ minimal drainage. all surgical
sights CDI. see worklist for detailed assessment
[2023-12-05] MEDS: LR 1000 IV (20:08)
[2023-12-05 21:44] LABS: Urine Albumin Trace (Neg - Trace); Urine Bilirubin 1+ (Negative); Urine Character Slightly Cloudy (Clear); Urine Color Amber; Urine Glucose Negative (Negative); Urine Ketone Trace (Negative); Urine Leukocyte Trace (Negative); Urine Nitrite Negative (Negative); Urine Occult Blood 4+ (Negative); Urine Specific Gravity 1.025 (<1.030); Urine Urobilinogen Negative (Neg - 1+)
[2023-12-05 21:52] LABS: Osmolality Urine 824 mOsm/kg (300-900)
[2023-12-05 22:01] LABS: Urine Sodium 29 mmol/L (30-90)
[2023-12-05 22:48] LABS: Urine Bacteria Few (Negative); Urine Hyaline Cast >15 /LPF (0-2); Urine Mucus Many
[2023-12-06] VITALS (14 sets, daily range): BP systolic 101–140; BP diastolic 50–87; PULSE 79; O2SAT 97; BMI 29.6
--- NOTE | 2023-12-06 | PTCARENOTE ---
no change from previous assessment
[2023-12-06] MEDS: ROXICODONE 5 MG PO (02:38)
[2023-12-06 02:55] LABS: Hematocrit 29.7 % (39.0-52.0); Hemoglobin 10.3 g/dL (13.0-18.0); Mean Corp Hgb Conc. 34.7 g/dL (33.0-37.0); Mean Corpuscular Hgb 31.2 pg (27.0-31.0); Mean Platelet Volume 10.7 fL (7.4-10.4); Platelet Count 128 10^3/uL (130-400); Red Cell Dist. Width 13.5 % (11.5-14.5); White Blood Cell Count 11.9 10^3/uL (4.8-10.8)
[2023-12-06 03:15] LABS: Blood Urea Nitrogen 20 mg/dl (9-20); Carbon Dioxide 29 mmol/L (22-30); Chloride 94 mmol/L (98-107); Estimated Creatinine Clearance 111 ml/min; Glucose 147 mg/dl (70-99); Magnesium 2.1 mg/dl (1.6-2.3); Potassium 4.1 mmol/L (3.5-5.1); Sodium 129 mmol/L (135-145); eGFR > 60.00
--- NOTE | 2023-12-06 04:00 | PTCARENOTE ---
no change from previous assessment
--- NOTE | 2023-12-06 05:55 | W.PN.CT ---
Today's Communication / Plan
-
-pod #2
-no issues overnight
-drips: 1 liter LR @ 100/hr, Levo 1->off @5am (sbp 120s)
-CT output: 2 meds 150/335 in 12/24 hrs
-low UO with hypotension, requiring low-dose Levo - suspected hypovolemia (elevated urine osmol, decreased urine Na)- improved with IVF overnight (UO 835cc overnight)
-current meds (ASA, Plavix, Lipitor, Zetia, Amio, Protonix, Neurontin, Lidocaine patch). Holding BB d/t 2nd degree AVB on 12/04
-maintain pw (insulated)
-encourage IS, OOB
Assessment / Plan
-
Assessment:
-s/p CABG x4(In situ FELDMAN to LAD, Ao to RSVG to diagonal to OM 2 (largest branch), Ao to RSVG to RPDA); Left atrial modified maze (Encompass clamp, PVI and Posterior LA Wall - Roof and Floor); LAAE (35mm Clip) on 12/04/[address] Menon, pod #2
-intraop NADIYA: LVEF 60% preop with no wma. Minor valvular pathology with trace insufficiency. EF remained the same postop with no wma. The left atrial appendage was verified to be free of any thrombus or debris preoperatively and found to be flush
and totally occluded postoperatively. After short period of VVI pacing he regained sinus rhythm.
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
-Abnormal stress test
-Persistent atrial fibrillation S/P PVI @ [facility] 04/23/2022 (Chronic Xarelto)
-SSS
-Carotid artery stenosis
-Hyperlipidemia
-Colon polyps
-Gout
-acute postop blood loss anemia- stable, no transfusion
-acute postop hypovolemia with subsequent hypervolemia
-afib preop and nsr with 1st degree AVB postop, intermittent 2:1 AV block
-acute postop atelectasis
-acute postop hyponatremia
Discussed patient care with: Nursing and Care Team
Subjective
Procedure
-s/p CABG x4(In situ FELDMAN to LAD, Ao to RSVG to diagonal to OM 2 (largest branch), Ao to RSVG to RPDA); Left atrial modified maze (Encompass clamp, PVI and Posterior LA Wall - Roof and Floor); LAAE (35mm Clip) on 12/04/[address] Menon
-
Date of Service: December 06, 2023
Objective Data
-
PT 16.0 Sec (11.4-14.6) H 12/04/23 15:05
INR 1.28 12/04/23 15:05
APTT 31.3 Sec (23.4-35.0) 12/04/23 15:05
Vital Signs
Vital Signs
Temp Pulse Resp BP Pulse Ox
98.5 F 84 16 111/50 97
12/05/23 23:00 12/06/23 02:00 12/05/23 23:00 12/06/23 02:00 12/05/23 23:00
CT Intake/Output/Weight
12/05/23 12/05/23 12/06/23
06:59 18:59 06:59
Intake Total 442.2 / 1550.9 1267.6 / 2478.0 1210.4 / 2478.0
Output Total 665 / 1200 265 / 700 435 / 700
Balance -222.8 / 350.9 1002.6 / 1778.0 775.4 / 1778.0
SaO2: 97
Physical Exam
-
General: Awake and AOx3
Cardiovascular: Regular rate & rhythm, No Murmurs and Rub
Respiratory: Decreased Breath Sounds
Sternum: Stable
Incision: Clean, Dry and Intact
Abdomen: soft, nondistended, nontender, decreased + bowel sounds
Extremities: No Edema (2+ PT b/l)
Data Reviewed
-
Lab Results: Results Reviewed
Medications: Active Meds Reviewed
Chest X-Ray: Report Reviewed and Image Reviewed
ECG: Report Reviewed and Image Reviewed
--- NOTE | 2023-12-06 07:30 | PTCARENOTE ---
Assumed care of patient from powder mill operator RN. AAO x 3. Sitting up in the chair. Denies pain. SR with first degree AVB. Epicardial wires insulated. Chest tubes x 2 to -20 cm suction. no air leak or crepitus noted. Lungs clear but diminished
bilaterally, IS to 1700. No cough or sputum noted. Abdomen soft and non tender, passing flatus. Voiding eddi urine in the urinal. Bilateral legs c,d,i. Pulses palpable. Surgical sites well approximated. Plan for day discussed.
[2023-12-06] MEDS: TYLENOL PO ×2 (07:36→14:58)
[2023-12-06] MEDS: ZETIA 10 MG PO (08:41)
[2023-12-06] MEDS: SENOKOT-S 1 TABLET PO ×2 (08:41→20:01)
[2023-12-06] MEDS: PLAVIX 75 MG PO (08:41)
[2023-12-06] MEDS: LOW STRENGTH ASPIRIN 81 MG PO (08:41)
[2023-12-06] MEDS: PROTONIX 40 MG PO (08:41)
[2023-12-06] MEDS: PACERONE 200 MG PO ×3 (08:41→21:54)
[2023-12-06] MEDS: BACTROBAN 2% OINTMENT 1 APPLIC NASAL ×2 (08:41→20:01)
[2023-12-06] MEDS: LOPRESSOR 12.5 MG PO ×2 (08:41→20:00)
[2023-12-06] MEDS: MAGNESIUM OXIDE 500 MG PO ×2 (08:41→20:00)
[2023-12-06] MEDS: NEURONTIN 100 MG PO ×3 (08:41→21:54)
[2023-12-06] MEDS: LASIX 40 MG IV (08:42)
[2023-12-06] MEDS: LIDOCAINE 4% PATCH 1 PATCH TOPICAL (08:42)
[2023-12-06] MEDS: LR IV (09:30)
--- NOTE | 2023-12-06 09:44 | W.PN.CARDCBS ---
Addendum entered and electronically signed by Chirag Rodriguez MD 12/06/23 11:06:
patient seen and examined
agree with EDGAR Segal's notes and assessment
agree with EDGAR Segal's plan
exam:
aao x 3
non focal neurologically
sternum cdi
cor regular
lungs ctab
abd soft nt nd
no ext edema
aao x3
non focal neurologically
Impression:
Abnormal stress test
MV CAD by cath @[facility] 12/02/2023
s/p In situ FELDMAN to LAD, Ao to RSVG to diagonal to OM 2 (largest branch), Ao to RSVG to RPDA with ÁLVARO clip, MAZE 12/04/23
Persistent atrial fibrillation
prior PVI @ [facility] 2Chronic Xarelto anticoagulation
SSS
Carotid artery stenosis
Colon polyps
Gout
Echo @[facility] 11/19/2023: EF 57%, trace AR, mild MR, cannot exclude left to right shunting
Lexiscan stress test @[facility] 11/21/2023: Perfusion imaging abnormal with reversible inferoapical defect. Localized apical wall motion with exercise is absent with rest. Imaging consistent with localized inferoapical ischemia.
LHC @[facility] 12/02/2023: Multivessel CAD. Left main: 70% distal left main stenosis. 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 LAD: 99% mid LAD stenosis right after the takeoff of the first large diagonal branch. 80% apical LAD
stenosis. LCx: 50 to 60% long diffuse tubular mid LCx stenosis. RCA: 50% ostial RCA stenosis with 50 to 60% proximal RCA disease. 70% mid RCA lesion just after the takeoff of the RV branch. 50 to 60% distal RCA lesion.
Plan:
-s/p In situ FELDMAN to LAD, Ao to RSVG to diagonal to OM 2 (largest branch), Ao to RSVG to RPDA with ÁLVARO clip, MAZE 12/04/23.
-RLE vein not usable, so LLE vein harvested and used.
-in SR with 1st degree av block. had brief 2:1 heart block with drop in HRs to 40s on IV amio gtt evening of 12/03 so amio/BB held. no rhythm issues on tele overnight. his po amio was resumed 4/11 PM, lopressor resumed 4/12AM. he had persistent afib
preop s/p MAZE. he had been on cardizem and xarelto preop
-BPs improved s/p IVF overnight.
-continue asa, plavix. hgb 10.3
-continue OP lipitor 80mg QPM and zetia
-hgbA1c 5.8%
-continue post op care, OOB/IS
-d/w nursing
Original Note:
Today's Communication / Plan
-
follow on tele. po amio and lopressor resumed
continue post op care
Impression / Plan
-
Risk Intern: Dr. Yip ([facility])
Impression:
Abnormal stress test
MV CAD by cath @[facility] 12/02/2023
s/p In situ FELDMAN to LAD, Ao to RSVG to diagonal to OM 2 (largest branch), Ao to RSVG to RPDA with ÁLVARO clip, MAZE 12/04/23
Persistent atrial fibrillation
prior PVI @ [facility] 04/23/2022
Chronic Xarelto anticoagulation
SSS
Carotid artery stenosis
Colon polyps
Gout
Echo @[facility] 11/19/2023: EF 57%, trace AR, mild MR, cannot exclude left to right shunting
Lexiscan stress test @[facility] 11/21/2023: Perfusion imaging abnormal with reversible inferoapical defect. Localized apical wall motion with exercise is absent with rest. Imaging consistent with localized inferoapical ischemia.
LHC @[facility] 12/02/2023: Multivessel CAD. Left main: 70% distal left main stenosis. 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 LAD: 99% mid LAD stenosis right after the takeoff of the first large diagonal branch. 80% apical LAD
stenosis. LCx: 50 to 60% long diffuse tubular mid LCx stenosis. RCA: 50% ostial RCA stenosis with 50 to 60% proximal RCA disease. 70% mid RCA lesion just after the takeoff of the RV branch. 50 to 60% distal RCA lesion.
Plan:
-s/p In situ FELDMAN to LAD, Ao to RSVG to diagonal to OM 2 (largest branch), Ao to RSVG to RPDA with ÁLVARO clip, MAZE 12/04/23.
-RLE vein not usable, so LLE vein harvested and used.
-in SR with 1st degree av block. had brief 2:1 heart block with drop in HRs to 40s on IV amio gtt evening of 12/03 so amio/BB held. no rhythm issues on tele overnight. his po amio was resumed 4/11 PM, lopressor resumed 4/12AM. he had persistent afib
preop s/p MAZE. he had been on cardizem and xarelto preop
-BPs improved s/p IVF overnight.
-continue asa, plavix. hgb 10.3
-continue OP lipitor 80mg QPM and zetia
-hgbA1c 5.8%
-continue post op care, OOB/IS
-d/w nursing
HPI: Chirag is a 73 year old male with PMH of persistent atrial fibrillation w/ prior PVI, SSS, carotid artery stenosis, and gout who presented to [facility] as a transfer from [facility] for CABG evaluation. He states he was seen by his stamper blocker for a routine
appointment and was found to be back in atrial fibrillation for the first time since his ablation. He was arranged for testing including a stress test which was abnormal. His primary stamper blocker, Dr. Ypi had wanted to start him on Flecainide
as antiarrhythmic, although due to abnormal stress test, needed to exclude coronary disease. He was then arranged for cardiac catheterization today, 12/02/2023 at [facility]. He was round to have multi-vessel disease and was transferred to for CABG
evaluation. He reports he has been active at baseline without limitations and has been asymptomatic both with his afib and with his coronary disease. He feels well currently and denies any chest pain, palpitations, dizziness, or SOB.
Progress Note - Risk Intern
Subjective
Date of Service: December 06, 2023
no issues overnight. reports some soreness this AM
Objective
Labs:
12/06/23 02:42
12/06/23 02:42
Labs
Hgb 10.3 g/dL (13.0-18.0) L 12/06/23 02:42
Hct 29.7 % (39.0-52.0) L 12/06/23 02:42
Plt Count 128 10^3/uL (130-400) L 12/06/23 02:42
PT 16.0 Sec (11.4-14.6) H 12/04/23 15:05
INR 1.28 12/04/23 15:05
APTT 31.3 Sec (23.4-35.0) 12/04/23 15:05
Sodium 129 mmol/L (135-145) L 12/06/23 02:42
Potassium 4.1 mmol/L (3.5-5.1) 12/06/23 02:42
BUN 20 mg/dl (9-20) 12/06/23 02:42
Creatinine 0.7 mg/dL (0.7-1.3) 12/06/23 02:42
Glucose 147 mg/dl (70-99) H 12/06/23 02:42
Vital Signs and I&O:
Vital Signs
Temp Pulse Resp BP Pulse Ox
98.2 F 79 14 132/63 94
12/06/23 08:00 12/06/23 08:55 12/06/23 08:00 12/06/23 08:00 12/06/23 09:27
Vital Signs
Temp Pulse Resp BP Pulse Ox
98.2 F 79 14 132/63 94
12/06/23 08:00 12/06/23 08:55 12/06/23 08:00 12/06/23 08:00 12/06/23 09:27
Intake & Output
12/04/23 12/05/23 12/06/23 12/07/23
07:59 07:59 07:59 07:59
Intake Total 240 / 240 1550.9 / 1573.2 3339.5 / 3459.5 120 / 120
Output Total 1200 / 1270 1440 / 1690 250 / 250
Balance 240 / 240 350.9 / 303.2 1899.5 / 1769.5 -130 / -130
Physical Exam
Physical Exam
GEN: No distress, awake, alert, oriented x3. sitting in chair
HEENT: supple, anicteric, mmm, eomi
LUNGS: CTA B/L, no wheezes
CV: Reg, S1/S2, no murmur
ABD: soft, BS+, NT/ND
EXT: No cyanosis, clubbing. trace edema of B/L LE
NEURO: Gross non-focal
SKIN: Warm, pink, dry. No rash. Sternotomy dressing c/d/i. CT in place.
--- NOTE | 2023-12-06 11:29 | CM ---
Chart reviewed. Patient is independent of ADLS, lives with his in a 2 STH, 1st floor set up, 2 LOUISA, 0 DME. Plan is for the patient to return home with CT Transitional RN. CM to follow
[2023-12-06] MEDS: JARDIANCE 10 MG PO (11:50)
--- NOTE | 2023-12-06 12:15 | PTCARENOTE ---
Ambulating at [place] in room. Assisted back to bed, epicardial wire removed by CT RESIDENTIAL PROGRAM COORDINATOR, VS Q15 minutes per protocol. Bedrest completed after one hour, Chest tubes then removed by this RN. Pt tolerated w/o issue. Resting in bed after. VSS. Assessment
otherwise unchanged from prior.
[2023-12-06] MEDS: NSS 500 IV (16:06)
--- NOTE | 2023-12-06 16:57 | PTCARENOTE ---
Ambulating in hallway at [place]. Denies complaint. VSS, assessment unchanged from prior.
[2023-12-06] MEDS: LIPITOR 80 MG PO (17:16)
[2023-12-06 17:20] LABS: Glucose - Point of Care 134 mg/dl (70-99)
--- NOTE | 2023-12-06 20:58 | PTCARENOTE ---
Received patient for 7p-7a shift. Pt AAOx3, without complaints. VSS, SR with 1st degree hb on diversity manager. IS up to 1500, occasional non-prod cough. MSI sharon, ecchymotic. B/l legs ecchymotic, incisions rotary derrick operator. Medications administered as ordered. Pt
denies pain at this time. Instructed pt to call for assistance if needed prior to ambulation. Pt verbalized understanding. Call ken in reach. Will continue to monitor.
[2023-12-06] MEDS: TYLENOL 1000 MG PO (21:54)
[2023-12-06 22:02] LABS: Glucose - Point of Care 120 mg/dl (70-99)
[2023-12-07] VITALS (8 sets, daily range): BP systolic 99–146; BP diastolic 47–71; PULSE 70; O2SAT 96–98; BMI 28.5
--- NOTE | 2023-12-07 00:33 | PTCARENOTE ---
Patient resting comfortably. VSS, NSR with 1st deg hb on quality assurance monitor body. Medications administered as ordered. blood glucose 120. Pt denies pain at this time. Will continue to monitor.
[2023-12-07 03:48] LABS: Hematocrit 30.2 % (39.0-52.0); Hemoglobin 10.3 g/dL (13.0-18.0); Mean Corp Hgb Conc. 34.1 g/dL (33.0-37.0); Mean Corpuscular Hgb 31.3 pg (27.0-31.0); Mean Corpuscular Volume 91.8 fL (80.0-94.0); Mean Platelet Volume 11.2 fL (7.4-10.4); Platelet Count 125 10^3/uL (130-400); Red Blood Cell Count 3.29 10^6/uL (4.70-6.10); Red Cell Dist. Width 13.7 % (11.5-14.5); White Blood Cell Count 10.2 10^3/uL (4.8-10.8)
[2023-12-07 04:09] LABS: Blood Urea Nitrogen 18 mg/dl (9-20); Calcium 8.4 mg/dl (8.4-10.2); Carbon Dioxide 32 mmol/L (22-30); Chloride 98 mmol/L (98-107); Estimated Creatinine Clearance 86 ml/min; Glucose 133 mg/dl (70-99); Magnesium 2.6 mg/dl (1.6-2.3); Potassium 4.4 mmol/L (3.5-5.1); Sodium 136 mmol/L (135-145); eGFR > 60.00
--- NOTE | 2023-12-07 04:59 | W.PN.CT ---
Today's Communication / Plan
-
-No major issues overnight. Hemodynamically and neurologically intact
-Temporary PW pulled yesterday without incident
-Remains in NSR. Cont. Amiodarone and Lopressor. Was on Cardizem Cd @ home which is currently on hold
-D/C cordis
-Cont. ASA/Plavix. Will likely resume home dose of Xarelto on POD#4 and d/c Plavix
-Held mag oxide today, mg 2.6
-Encourage use of IS
-OOB into chair/Ambulate
-Home likely tomorrow
Assessment / Plan
-
Assessment:
-s/p CABG x4(In situ FELDMAN to LAD, Ao to RSVG to diagonal to OM 2 (largest branch), Ao to RSVG to RPDA); Left atrial modified maze (Encompass clamp, PVI and Posterior LA Wall - Roof and Floor); LAAE (35mm Clip) on 12/04/[address] Menon, pod #3
-intraop NADIYA: LVEF 60% preop with no wma. Minor valvular pathology with trace insufficiency. EF remained the same postop with no wma. The left atrial appendage was verified to be free of any thrombus or debris preoperatively and found to be flush
and totally occluded postoperatively. After short period of VVI pacing he regained sinus rhythm.
-Multivessel CAD including 70% distal LM- transferred from [facility] for CABG evaluation on 12/01
-Abnormal stress test
-Persistent atrial fibrillation S/P PVI @ [facility] 04/23/2022 (Chronic Xarelto)
-SSS
-Carotid artery stenosis
-Hyperlipidemia
-Colon polyps
-Gout
-acute postop blood loss anemia- stable, no transfusion
-acute postop hypovolemia with subsequent hypervolemia
-afib preop and nsr with 1st degree AVB postop, intermittent 2:1 AV block
-acute postop atelectasis
-acutepostop pulmonary insufficiency
-acute postop hyponatremia
Discussed patient care with: Cardiology, Nursing, Respiratory Therapy, Pharmacy and Care Team
Subjective
Procedure
-s/p CABG x4(In situ FELDMAN to LAD, Ao to RSVG to diagonal to OM 2 (largest branch), Ao to RSVG to RPDA); Left atrial modified maze (Encompass clamp, PVI and Posterior LA Wall - Roof and Floor); LAAE (35mm Clip) on 12/04/[address] Menon
-
Date of Service: December 07, 2023
Pt c/o mild incisional pain, states pain much improved following chest tube removal yesterday
Objective Data
-
Lab Results
12/07/23 03:18
12/07/23 03:18
PT 16.0 Sec (11.4-14.6) H 12/04/23 15:05
INR 1.28 12/04/23 15:05
APTT 31.3 Sec (23.4-35.0) 12/04/23 15:05
Vital Signs
Vital Signs
Temp Pulse Resp BP Pulse Ox
98.0 F 70 18 137/64 96
12/07/23 03:19 12/07/23 03:19 12/07/23 03:19 12/07/23 03:18 12/07/23 03:[address] Intake/Output/Weight
12/06/23 12/06/23 12/07/23
06:59 18:59 06:59
Intake Total 2498.0 / 3765.6 140 / 200 60 / 200
Output Total 1225 / 1490 1250 / 1250
Balance 1273.0 / 2275.6 -1110 / -1050 60 / -1050
SaO2: 96 (RA)
Physical Exam
-
General: Awake, Oriented and AOx3
Cardiovascular: Regular rate & rhythm, No Murmurs, No Rub and No Gallop
Respiratory: Decreased Breath Sounds (at bases)
Sternum: Stable
Incision: Clean, Dry, Intact and Dressing Intact
Extremities: No Edema
Data Reviewed
-
Lab Results: Results Reviewed
Medications: Active Meds Reviewed
Chest X-Ray: Report Reviewed and Image Reviewed
ECG: Report Reviewed and Image Reviewed
[2023-12-07] MEDS: TYLENOL 1000 MG PO (05:37)
--- NOTE | 2023-12-07 08:25 | PTCARENOTE ---
assumed care of pt from previous shift RN, sinus rhythm on tele, + peripheral pulses, no edema. Lungs CTA, pox 95%. +bs, voids spontaneously. Surgical sites intact. pt sent for 2 view CXR. plan of view reviewed and questions encouraged.
[2023-12-07] MEDS: NEURONTIN 100 MG PO (09:49)
[2023-12-07] MEDS: SENOKOT-S 1 TABLET PO (09:49)
[2023-12-07] MEDS: JARDIANCE 10 MG PO (09:49)
[2023-12-07] MEDS: ZETIA 10 MG PO (09:49)
[2023-12-07] MEDS: PROTONIX 40 MG PO (09:49)
[2023-12-07] MEDS: LOPRESSOR 12.5 MG PO (09:49)
[2023-12-07] MEDS: LOW STRENGTH ASPIRIN 81 MG PO (09:49)
[2023-12-07] MEDS: PLAVIX 75 MG PO (09:49)
[2023-12-07] MEDS: PACERONE 200 MG PO (09:49)
[2023-12-07] MEDS: BACTROBAN 2% OINTMENT 1 APPLIC NASAL (09:50)
[2023-12-07] MEDS: LIDOCAINE 4% PATCH TOPICAL (09:50)
--- NOTE | 2023-12-07 10:37 | W.DCSUMMARY ---
Discharge Summary
Discharge Data
Date of Admission: 12/02/23
Date of Discharge: 12/07/23
Total time spent discharging patient (in min): 45
-
Pending Results: No
Hospital Course
Primary care physician: None
Outpatient mussel farmer: Dr. Yip
Inpatient consultants:
1. Chirag Rodriguez MD (Cardiology)
2. Derrick Covarrubias ([employer])
Procedures:
1. Coronary artery bypass grafting x 4, left internal mammary artery to left anterior descending, saphenous vein graft to diagonal�obtuse marginal, saphenous vein graft to right posterior descending artery, encompass maze, pulmonary vein isolation,
left atrial appendage exclusion
Primary Diagnosis:
Coronary artery disease
Secondary Diagnoses:
Acute blood loss anemia
Acute postoperative hypovolemia
Acute postoperative atelectasis
Acute postoperative hyponatremia
Persistent atrial fibrillation
Sick sinus syndrome
Coronary artery disease
Hyperlipidemia
Gout
Colon polyps
HPI: 73-year-old male with past medical history of atrial fibrillation status post ablation at [facility] on Xarelto was seen by his mussel farmer a few weeks ago and found to be in atrial fibrillation. Due to atrial fibrillation the
patient was scheduled for cardioversion today, however, given his history patient was taken for left heart cath as well. Left heart cath revealed a 70% left main coronary artery stenosis with a 2 mm coronary artery aneurysm at the distal left main.
There is also 99% mid left anterior descending lesion right after takeoff of the first large diagonal branch and 80% apical left anterior descending lesion, 50 to 60% long diffuse tubular mid left circumflex lesion, and 60% proximal right coronary
artery and 70% mid, right coronary artery stenoses. Due to these findings the patient was transferred to [facility] for coronary artery bypass grafting evaluation.
Hospital course: Patient underwent coronary artery bypass grafting by Dr. Da Menon on 12/04/2023. Please refer to his separately dictated operative report for complete details. Patient was transferred to the open-heart unit on low-dose
Levophed. Patient was extubated per protocol at 1915. Levophed was subsequently weaned off by postoperative day #1.
Postoperative day #1: Patient progressed well overnight. Invasive monitoring lines were removed. Patient was started on aspirin and Plavix for dual antiplatelet therapy post CABG. Amiodarone was held secondary to brief second-degree
atrioventricular block overnight. This later resolved into a normal sinus rhythm. Levophed was briefly restarted midday for lower blood pressures. After volume resuscitation the subsequently resolved.
Postoperative day #2: Patient maintaining sinus rhythm on amiodarone and beta-pj prophylaxis. Levo remains off. Patient was diuresed. Temporary ventricular pacing wire was removed. Jardiance was restarted. Patient continued ambulating with
physical therapy and Occupational Therapy. Patient was on room air by the end of the day. Chest tubes were removed.
Postoperative day #3: Patient remains on room air and is ambulating independently. 2 view chest x-ray was within normal limits. Patient remains hemodynamically stable on current therapy. Patient was cleared for discharge to home today.
Home medication changes: Replaced home pravastatin with high intensity atorvastatin, replaced Cardizem with metoprolol per coronary artery disease guideline directed therapy.
Discharge Plan
-
Patient Disposition: Home (Routine Discharge)
Discharge Diagnosis/Procedures: -Status post coronary artery bypass grafting x 4 (In situ left internal mammary to left anterior descending, aorta diagonal to obtuse marginal 2 (largest branch), aorta to right posterior descending artery); Left
atrial modified maze (Encompass clamp, pulmonary vein isolation and Posterior left atrial Wall - Roof and Floor); left atrial appendage exclusion (35mm Clip) on 12/04/[address] Menon
-Intraoperative transesophageal echocardiogram: Left ventricular ejection fraction 60% preoperatively with no wall motion abnormalities. Minor valvular pathology with trace insufficiency. Ejection fraction remained the same postop with no wall
motion abnormalities. The left atrial appendage was verified to be free of any thrombus or debris preoperatively and found to be flush and totally occluded postoperatively.
-Multivessel coronary artery disease including 70% distal left main- transferred from [facility] for coronary artery bypass grafting evaluation on 4/8
-Abnormal stress test
-Persistent atrial fibrillation status post pulmonary vein isolation@[facility] 04/23/2022 (Chronic Xarelto)
-Sick sinus syndrome
-Carotid artery stenosis
-Hyperlipidemia
-Colon polyps
-Gout
-acute postoperative blood loss anemia- stable, no transfusion
-acute postoperative hypovolemia with subsequent hypervolemia
-afib preoperative and normal sinus with 1st degree atrioventricular block postop, intermittent 2:1 atrial ventricular block
-acute postoperative atelectasis
-acute postoperative pulmonary insufficiency
-acute postoperative hyponatremia
Condition: Good
Additional Diets: Heart Healthy
Activity: No strenuous activity
Driving Restrictions: Not until seen by your Dr
Bathing Restrictions: None
Activity Restrictions/Additional Instructions:
ACTIVITY:
-No strenuous activity: no heavy lifting, pushing, pulling anything over 15 pounds for one month
-continue to use stairs as tolerated
DRIVING RESTRICTIONS:
-No driving for one month or until approved by your surgeon
WOUND CARE:
-Shower daily. Use soap & water.
-No lotions, creams or powders on incision area.
DIET:
-continue a low fat/low cholesterol diet.
-IF you are diabetic, continue carb controlled diet.
CARDIAC REHAB:
-Please make appointment to start in 5-6 weeks with your local hospital program. (See Cardiac Rehabilitation Discharge Booklet).
SPECIALTY INSTRUCTIONS:
-Weigh yourself daily. Call your physician for any weight gain/loss of 3 lbs overnight or 5 lbs in one week.
-REPORT any clicking noise or uneven appearance of your sternum to your surgeon immediately.
-If you smoke, you are instructed to quit. The [place] smoking hotline phone number is [phone]
Referrals:
CT Transitional Care Nurse [Outside] (The Cardiothoracic Transitional Care Nurse will call you to set up a visit in 1-2 days.)
Oscar Yip MD [Non-Admitting Privileges] - 01/15/24 2:10 pm
Da Menon MD [Active] - 01/01/24 2:15 pm
UNKNOWN,NO INTERVIEW [Family Provider] -
Prescriptions:
New
atorvastatin 80 mg Tablet
80 mg PO QPM Qty: 30 2RF
oxycodone 5 mg Tablet
5 mg PO Q4HPRN PRN (Reason: moderate pain) Qty: 30 0RF
metoprolol tartrate 25 mg Tablet
12.5 mg PO Q12 Qty: 60 2RF
aspirin [Children's Aspirin] 81 mg Tablet,Chewable
81 mg PO DAILY Qty: 30 2RF
acetaminophen 325 mg Tablet
650 mg PO Q4HPRN PRN (Reason: mild pain,headache,temp >101F ) Qty: 60 2RF
Continued
ezetimibe 10 mg Tablet
10 mg PO DAILY
Xarelto 20 mg Tablet
20 mg PO DAILY
Jardiance 10 mg Tablet
10 mg PO DAILY
Discontinued
pravastatin 40 mg Tablet
40 mg PO DAILY
diltiazem HCl [Cardizem CD] 240 mg Capsule,Extended Release 24hr
240 mg PO DAILY
Discharge Orders:
Discharge Patient (As Directed); Ordered 12/07/23
Ordered By: Evans Smith
Care Plan Goals
Care Plan Goals:
Problem: Readiness for enhanced knowledge related to diagnosis and treatment plan
Goal: Understand your diagnosis and treatment plan needs, including medications if applicable.
Instructions: Know your diagnosis, underlying causes and treatment plan options, including medications if applicable. Consult with your health care team to learn about your diagnosis and treatment plan, including medications if applicable.
Discharge Date and Time
Print Language: SAMI
--- NOTE | 2023-12-07 12:45 | PTCARENOTE ---
cordis removed without incident.
[2023-12-07] MEDS: TYLENOL PO (15:35)
--- NOTE | 2023-12-07 15:36 | PTCARENOTE ---
tele monitor and IV lines removed, pt showered without incident. Discharge instructions, medication list and follow up appointments reviewed w the pt and his , questions encouraged.
== END 2023-12-07 15:36 | disposition home or self-care (01) | DRG 233 ==
LOC: CVICU 13:45
PROVIDERS: Clinical Nurse Specialist Acute Care; Physician Assistant Medical; ADMITTING PHYSICIAN Thoracic Surgery (Cardiothoracic Vascular Surgery); CONSULT PHYSICIAN Internal Medicine Cardiovascular Disease; CONSULT PHYSICIAN Internal Medicine Critical Care Medicine
PROC: 06BQ4ZZ Excision of Left Saphenous Vein, Percutaneous Endoscopic Approach (ICD-10-PCS; 2023-12-04)
PROC: 02100Z9 Bypass Coronary Artery, One Artery from Left Internal Mammary, Open Approach (ICD-10-PCS; 2023-12-04)
PROC: 02580ZZ Destruction of Conduction Mechanism, Open Approach (ICD-10-PCS; 2023-12-04)
PROC: 02L70CK Occlusion of Left Atrial Appendage with Extraluminal Device, Open Approach (ICD-10-PCS; 2023-12-04)
PROC: 021209W Bypass Coronary Artery, Three Arteries from Aorta with Autologous Venous Tissue, Open Approach (ICD-10-PCS; 2023-12-04)
PROC: 5A1221Z Performance of Cardiac Output, Continuous (ICD-10-PCS; 2023-12-04)
DX: I25.119 Atherosclerotic heart disease of native coronary artery with unspecified angina pectoris (principal); J95.1 Acute pulmonary insufficiency following thoracic surgery; I48.19 Other persistent atrial fibrillation; D62 Acute posthemorrhagic anemia; J98.11 Atelectasis; E87.1 Hypo-osmolality and hyponatremia; I49.5 Sick sinus syndrome; I65.29 Occlusion and stenosis of unspecified carotid artery; M10.9 Gout, unspecified; E78.5 Hyperlipidemia, unspecified; E86.1 Hypovolemia; K63.5 Polyp of colon; I44.1 Atrioventricular block, second degree; E87.70 Fluid overload, unspecified; I25.41 Coronary artery aneurysm; Y83.2 Surgical operation with anastomosis, bypass or graft as the cause of abnormal reaction of the patient, or of later complication, without mention of misadventure at the time of the procedure; Z79.01 Long term (current) use of anticoagulants; Z79.899 Other long term (current) drug therapy
CPT/HCPCS: 33259; 70496; 70498; 71045; 71046; 71275; 80048; 80053; 80061; 81003; 81015; 82330; 82565; 82805; 82947; 82962; 83036; 83735; 83935; 84132; 84300; 84302; 84484; 84520; 85014; 85018; 85027; 85049; 85610; 85730; 86850; 86900; 86901; 86920; 87070; 93005; 93312; 93320; 93325; 93970; 94002; P9045; Q9967

== ENCOUNTER 2024-06-15 07:10 | Inpatient (IN) | payer MEDICARE, BC, SELFPAY ==
[2024-06-10 09:53] VITALS: BMI 30.1
[2024-06-10 11:09] LABS: INR 0.95; PT 12.7 Sec (11.4-14.6)
[2024-06-10 11:10] LABS: APTT 31.8 Sec (23.4-35.0)
[2024-06-10 11:12] LABS: % Basophils 0.6 % (0-2); % Eosinophils 2.4 % (0-6); % Immature Granulocytes 0.2 % (0-0.5); % Lymphocytes 26.5 % (20.5-51.1); % Monocytes 8.9 % (1.7-9.3); % Neutrophils 61.4 % (42.2-75.2); Absolute Eosinophils 0.2 10^3/uL (0-0.7); Absolute Lymphocytes 1.7 10^3/uL (1.2-3.4); Absolute Monocytes 0.6 10^3/uL (0.1-0.6); Absolute Neutrophils 3.9 10^3/uL (1.4-6.5); Hematocrit 46.3 % (39.0-52.0); Hemoglobin 15.6 g/dL (13.0-18.0); Mean Corp Hgb Conc. 33.7 g/dL (33.0-37.0); Mean Corpuscular Hgb 30.5 pg (27.0-31.0); Mean Corpuscular Volume 90.4 fL (80.0-94.0); Mean Platelet Volume 11.7 fL (7.4-10.4); Nucleated Red Blood Cells % 0 % (-); Platelet Count 159 10^3/uL (130-400); Red Blood Cell Count 5.12 10^6/uL (4.70-6.10); Red Cell Dist. Width 14.2 % (11.5-14.5); White Blood Cell Count 6.4 10^3/uL (4.8-10.8)
[2024-06-10 11:15] LABS: Blood Urea Nitrogen 14 mg/dl (9-20); Calcium 9.4 mg/dl (8.4-10.2); Carbon Dioxide 22 mmol/L (22-30); Chloride 106 mmol/L (98-107); Estimated Creatinine Clearance 92 ml/min; Glucose 106 mg/dl (70-99); Potassium 4.3 mmol/L (3.5-5.1); Sodium 143 mmol/L (135-145); eGFR > 60.00
[2024-06-15] VITALS (9 sets, daily range): BP systolic 119–161; BP diastolic 64–99; BMI 29.7
--- NOTE | 2024-06-15 07:32 | HP.FOC2 ---
Focused History & Physical
Chief Complaint
HPI:
Chief Complaint: Left carotid artery stenosis
HPI / Indication for Planned Procedure: This is a 73-year-old male with significant past medical history for persistent atrial fibrillation, CAD, gout, and carotid stenosis who presents for scheduled procedure with Dr. Bienvenido Mcintosh of left carotid
endarterectomy. Denies nausea, vomiting, fever, chills, cough, nausea or vomiting. He reports he is at his baseline health, other than recent trauma of right third digit which required stitches. Patient does note that he has been on p.o. Keflex
following placement of stitches at third digit of right hand.
Relevant Past Medical History: Other (persistent atrial fibrillation, CAD, gout, diabetes, and carotid stenosis)
Relevant Family History: Positive for (Dementia)
Relevant Past Surgical History: Positive for (CABG x 4 and A-fib ablation)
Review of Systems
Review of Pertinent Systems: All Systems Negative
Medication
See Medication form for detailed medications: Yes
Medication List (including Herbals & OTC):
empagliflozin 10 mg tablet (Jardiance) 10 mg PO DAILY 12/02/23
ezetimibe 10 mg tablet 10 mg PO DAILY High Cholesterol 12/02/23
aspirin 81 mg chewable tablet (Children's Aspirin) 81 mg PO DAILY #30 tabs 12/07/23
atorvastatin 80 mg tablet 80 mg PO QPM #30 tabs 12/07/23
metoprolol tartrate 25 mg tablet 12.5 mg PO BID 06/08/24
Medications Reviewed: Yes
Allergies and Reactions
Patient has Allergies: No
Noted Allergies and Reactions:
Allergy/AdvReac Type Severity Reaction Status Date / Time
No Known Allergies Allergy Verified 06/08/24 09:03
Pertinent Physical Exam
All Other Systems: Negative
Head/Neck: Normal
Lungs: Normal (Bilateral lungs CTA)
Heart: Normal (No murmur)
Abdomen: Normal
Extremities: Other (+2 palpable bilateral PT, unable to palpate DP)
Neurological: Normal
Diagnosis / Assessment
Assessment: 73-year-old male with left carotid stenosis, will proceed with scheduled left carotid endarterectomy
Plan / Procedure
Plan:
Proceed with scheduled left carotid endarterectomy
Anesthesia/Sedation to be done by Anesthesia Provider: Yes
[2024-06-15] MEDS: BACTROBAN NASAL 1 GRAM NASAL (07:55)
[2024-06-15] MEDS: NSS 500 IV (07:56)
[2024-06-15] MEDS: PERIDEX 0.12% ORAL RINSE 15 ML PO (07:56)
--- NOTE | 2024-06-15 08:54 | W.SUR.PREOP ---
Pre-Operative Surgical Note
-
I have examined this patient prior to the performance of the scheduled procedure.
The patient's condition is unchanged from the time of the current History and
Physical and the patient is able to undergo the scheduled procedure.
[2024-06-15 09:49] LABS: ACT-LR - POC 308 Seconds (116-155)
[2024-06-15 10:34] LABS: ACT-LR - POC 252 Seconds (116-155)
--- NOTE | 2024-06-15 11:02 | OR.RPT ---
Operative Report
Operative Report
Date of Operation: 06/15/2024
Pre Op Diagnosis: Asymptomatic high-grade stenosis of the left internal carotid artery
Post Op Diagnosis: Asymptomatic high-grade stenosis of the left internal carotid artery
Procedure: LEFT carotid endarterectomy with patch angioplasty using bovine pericardium
Surgeon: Bienvenido Mcintosh III, MD
Equipment Hire Manager: Selam Galarza MD PGY-8
Anesthesia: General
Complications: None
History and Indications for Procedure: 73-year-old male with asymptomatic high-grade left carotid artery stenosis
Procedure in Detail: Chirag Grant was correctly identified and placed supine on the operating table. After adequate induction of anesthesia the left neck was positioned, prepped and draped in the usual sterile fashion. Preoperative antibiotics were
administered. A timeout procedure was performed with the nursing and anesthesia staff confirming the patients identity as well as the nature and laterality of the procedure.
The carotid bifurcation was marked with ultrasound at the beginning of the case. The incision was planned accordingly. An incision was made along the anterior border of the left sternocleidomastoid muscle. Electrocautery was used to divide the
subcutaneous tissue and platysma. The carotid sheath was entered with sharp dissection. The internal jugular vein was retracted laterally. The vagus nerve was identified and protected throughout the case. The common carotid artery was identified at
the base of this incision and carefully encircled with a vessel loop. The patient was systemically heparinized. The dissection was continued distally towards the carotid bifurcation. The facial vein was skeletonized, ligated and divided between ties
and clips. The proximal external carotid artery was encircled with a vessel loop. The distal internal carotid artery was encircled with a vessel loop at a soft spot on the artery beyond the plaque. The hypoglossal nerve was identified and protected.
The internal vessel loop was secured followed by the common and external. An arteriotomy was made on the distal common carotid artery with an 11-blade. This was extended proximally and distally with Saldana scissors. The arteriotomy was extended
distally through the plaque to an area of normal appearing internal carotid artery. The distal vessel loop was replaced with a short tip hockey-stick type vascular clamp. An endarterectomy was performed with a Ralston elevator in the standard
fashion. The proximal extent of the plaque was transected with scissors. The distal end of the plaque in the internal carotid artery was feathered. There was a distal intimal flap that was tacked down along the posterior wall with 2 interrupted 7-0
Prolene sutures. The plaque extending into the external carotid artery was everted. Once the plaque was fully removed the endarterectomy plane was irrigated with heparinized saline and any loose fronds of tissue were removed. A pre-cut piece of
bovine pericardium was sewn in place using a running 6-0 Prolene suture. Prior to the completion of the patch the common carotid was allowed to forward bleed and the external was allowed to back bleed. The area under the patch was irrigated with
heparinized saline to remove any potential thrombus or debris. The anastomosis was completed.
The external vessel loop was released first, followed by the common and then the internal. There was an excellent pulse in the distal internal carotid artery. An excellent quality Doppler signal in the distal internal carotid artery was also
confirmed. The patch suture line was closely inspected for hemostasis and was achieved. Protamine was administered. Hemostasis was achieved in the wound bed. The wound was irrigated with saline solution.
The wound was then closed in layers. Sterile dressings were applied. The patient awoke from anesthesia with no immediate neuro deficits and was taken to the PACU in stable condition.
Attestation: I was present and responsible for the entire procedure
Signed:
Bienvenido Mcintosh III, MD
[facility] Vascular Surgery
[phone] (cell)
[2024-06-15 11:37] LABS: Glucose - Point of Care 119 mg/dl (70-99)
--- NOTE | 2024-06-15 11:41 | CON.INTV ---
Consultation
Consultation Request
Date/Time Consultation Requested: 06/15/2024 - 1113
Date/Time Consultation Performed: 06/15/2024 - 8
Requesting Provider: SHE Ayers
Performing Provider: Julien Harding MD
Reason for Consultation: s/p L-CEA
Medical History
-
Chief Complaint: Elective left CEA
History of Present Illness:
73-year-old male non-smoker with a past medical history of bilateral carotid artery stenosis who presents for carotid revascularization. Patient known to vascular surgery with Dr. Mcintosh, last office visit on 04/15/2024. Patient's prior CTA neck
performed on 12/03/2023 showed bilateral calcified plaque within each carotid bulb with approximately 50% stenosis. He has remained asymptomatic. Carotid endarterectomy was discussed including its risks and benefits. Today he underwent a left
carotid endarterectomy with patch angioplasty using bovine pericardium. There were no immediate complications and he was transferred to the ICU postoperatively for further care. Consulting Sales Executive services consulted for additional
management/recommendations.
When I saw the patient he was resting in bed, with ice pack on left-sided neck and patient's , Yesenia, at bedside. Heart rate 74, BP via left radial A-line: 138/62 and BP via NIBP: 123/73. He has no facial droop, no facial numbness or tingling.
He also denies shortness of breath, chest pain, REBOLLAR, nausea, fevers or chills.
PMHx: Persistent A-fib s/p ablation (March 2022), CAD, carotid artery stenosis, colonic polyps, gout, sick sinus syndrome
PSHx: CABG x 4, A-fib ablation (March 2022)
Past Medical History
Past Medical History: Other (Above as per HPI)
Past Surgical History: Other (Above as per HPI)
Social History
Tobacco: Non-smoker
Alcohol: Occasional
Drug: None
Personal:
Living: With Family
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
Family History
Family History: Cancer (Brother: Throat cancer s/p surgery, chemo/radiation) and Other (Mother: Dementia)
Allergies / Home Medications
Allergies
Allergy/AdvReac Type Severity Reaction Status Date / Time
No Known Allergies Allergy Verified 06/15/24 07:37
Home Medications
�Medication �Instructions �Recorded �Confirmed �Last Taken �Type
empagliflozin 10 mg tablet 10 mg PO DAILY Diabetes 12/02/23 06/15/24 06/11/24 07:30 History
(Jardiance)
ezetimibe 10 mg tablet 10 mg PO DAILY High Cholesterol 12/02/23 06/15/24 06/14/24 07:30 History
aspirin 81 mg chewable tablet 81 mg PO DAILY #30 tabs 12/07/23 06/15/24 06/15/24 07:30 Rx
(Children's Aspirin)
atorvastatin 80 mg tablet 80 mg PO QPM #30 tabs 12/07/23 06/15/24 06/14/24 19:30 Rx
metoprolol tartrate 25 mg tablet 12.5 mg PO BID Heart 06/08/24 06/15/24 06/15/24 07:30 History
Disease/Condition
cephalexin 500 mg capsule 500 mg PO BID Infection 06/15/24 06/15/24 06/15/24 07:30 History
Review of Systems
-
History Source: Patient
All other systems: Negative unless noted
Vitals / Labs / Diagnostic Testing
Vital Signs
Temp Pulse Resp BP Pulse Ox
98.2 F 73 18 125/64 97
06/15/24 13:00 06/15/24 13:45 06/15/24 13:45 06/15/24 12:15 06/15/24 13:58
Lab Data
06/15/24 11:30
06/15/24 11:30
Diagnostic Testing:
Physical Exam
-
HEENT: Anicteric and Other (Left neck bandage seen with overlying ice pack)
Cardiovascular: S1/S2 and Peripheral Edema (negative)
Respiratory: Clear, Wheeze (negative), Rales (negative), Rhonchi (negative) and Non-Labored Respirations
GI: Soft, Non Distended, Non Tender and Normal Bowel Sounds
Neurology: AO x 3 and Tremors (negative)
Skin: Warm and Dry
General: Respiratory Distress (negative), Comfortable, Chills (negative) and Sweats (negative)
Assessment
-
Assessment: 73-year-old male non-smoker with a past medical history of bilateral carotid artery stenosis who presents for carotid revascularization. Patient known to vascular surgery with Dr. Mcintosh, last office visit on 04/15/2024. Patient's prior
CTA neck performed on 12/03/2023 showed bilateral calcified plaque within each carotid bulb with approximately 50% stenosis. He has remained asymptomatic. Carotid endarterectomy was discussed including its risks and benefits. On 06/15/2024, he
underwent a left carotid endarterectomy with patch angioplasty using bovine pericardium. There were no immediate complications and he was transferred to the ICU postoperatively for further care. Consulting Sales Executive services consulted for additional
management/recommendations.
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
Impression:
#Asymptomatic high-grade stenosis of left internal carotid artery s/p left carotid endarterectomy with patch angioplasty using bovine pericardium (POD #0)
#Thrombocytopenia (mild)
#History of A-fib s/p ablation (03/2022)
#CAD
#Sick sinus syndrome
#Gout
Assessment:
Postoperative surgical intensive care unit monitoring
Supplemental oxygen as needed to maintain SpO2 >90-94%
prn nebulized bronchodilators - not currently bronchospastic
Incentive spirometry encouraged 10x per hour for at least 4 hrs a day
Aspiration precautions
Pain control
Neuro and vascular checks per protocol
Maintain MAP>65
Replete electrolytes with K>4, Mg>2
Maintain euglycemia with goal BG 140-180
Vascular surgery following-correspondence and operative notes reviewed
Transfuse blood products as needed to keep Hb>7g/dL, and plt>50k (given post-operative status)
DVT prophylaxis
Early nutrition
Early mobilization
Critical care statement: A total of 44 minutes of critical care time was provided for this patient today. This includes management of unstable vital signs, evaluation of the patient at bedside, reviewing the patient's pertinent medical records
including radiographs, microbiology, laboratory evaluations, and discussion with primary team, consultants, pharmacy, nutrition, physical therapy, case management, charge nurse, critical care nursing, and respiratory therapy.
[2024-06-15 11:49] LABS: Hematocrit 40.3 % (39.0-52.0); Hemoglobin 13.6 g/dL (13.0-18.0); Mean Corp Hgb Conc. 33.7 g/dL (33.0-37.0); Mean Corpuscular Hgb 30.7 pg (27.0-31.0); Mean Platelet Volume 10.4 fL (7.4-10.4); Platelet Count 139 10^3/uL (130-400); Red Blood Cell Count 4.43 10^6/uL (4.70-6.10); Red Cell Dist. Width 14.1 % (11.5-14.5); White Blood Cell Count 6.9 10^3/uL (4.8-10.8)
[2024-06-15 11:53] LABS: Blood Urea Nitrogen 17 mg/dl (9-20); Calcium 8.3 mg/dl (8.4-10.2); Carbon Dioxide 23 mmol/L (22-30); Chloride 105 mmol/L (98-107); Estimated Creatinine Clearance 105 ml/min; Glucose 145 mg/dl (70-99); Potassium 4.7 mmol/L (3.5-5.1); Sodium 138 mmol/L (135-145); eGFR > 60.00
[2024-06-15] MEDS: NSS 1000 IV (12:04)
--- NOTE | 2024-06-15 13:06 | SUR.PHASEI ---
patient in pacu post carotid endart. - awake and alert, minimal discomfort, no neuro deficit. labs drawn from [facility] and sent. vss. ice to next for comfort. patient taking ice chips po. report to iccu and hand off at bedside. Patient's
updated and waiting in iccu area.
--- NOTE | 2024-06-15 14:31 | PTCARENOTE ---
1237-Received pt from PACU via bed.Pt is awake and alert.Speech is appropriate.No dysarthria noted.Slight flattened right nasolabial fold and right bottom lip down(as per pt's ).Tongue midline.VALET CASHIER Cain made aware.SR noted.Left radial A Line
zeroed and placed midaxillary.IVF infusing.POX 95-97% on RA.Lungs CTA.No BM.Tolerating ice water.No void at this time.Left neck incision intact with surgical adhesive.Pt's at bedside.Plan of care discussed.
--- NOTE | 2024-06-15 15:25 | PTCARENOTE ---
Pt stated that he changed the dressing on his right middle finger laceration this am.He declined dressing change at this time.
--- NOTE | 2024-06-15 15:55 | PTCARENOTE ---
1500-ABP/NIBP raised for 10 minutes.Cardene ready to hang.Hypertension resolved after pt voided in urinal.
--- NOTE | 2024-06-15 16:06 | PTCARENOTE ---
Pt assessed.No change in assessment noted.
[2024-06-15] MEDS: LIPITOR 80 MG PO (17:14)
[2024-06-15 17:21] LABS: Glucose - Point of Care 109 mg/dl (70-99)
--- NOTE | 2024-06-15 19:30 | PTCARENOTE ---
received report from RN, dual RN bedside neuro check, AAOx3 HENNESSY R sided droop noted on day shift resolved, sinus with 1st degree on the monitor, + radials weak pedals, lungs clear on RA SATs 95%, round belly BSx4, pt using urinal due to void, R
middle finger laceration dressing dry and intact, L carotid approximated with surgical adhesive and open to air, pt denies pain just states it's uncomfortable, ice pack applied to surgical site, 18G LA, 20G RFA, NS 80ml, pt able to make needs known,
call ken within reach, otherwise refer to documentation.
[2024-06-15] MEDS: HEPARIN 5000 UNITS SC (19:45)
[2024-06-15] MEDS: LOPRESSOR 12.5 MG PO (19:45)
[2024-06-15] MEDS: KEFLEX 500 MG PO (19:46)
[2024-06-15 21:36] LABS: Glucose - Point of Care 165 mg/dl (70-99)
[2024-06-16] MEDS: NSS 1000 IV (00:25)
[2024-06-16] MEDS: TYLENOL 650 MG PO ×2 (00:26→07:33)
--- NOTE | 2024-06-16 00:29 | PTCARENOTE ---
systems reviewed, pt uncomfortable and rates pain in neck a 2-3 gave tylenol per order, neuro checks per worklist otherwise refer to documentation
[2024-06-16 03:54] VITALS: BMI 30.5
[2024-06-16 03:56] LABS: Hematocrit 38.9 % (39.0-52.0); Hemoglobin 13.1 g/dL (13.0-18.0); Mean Corp Hgb Conc. 33.7 g/dL (33.0-37.0); Mean Corpuscular Hgb 31.3 pg (27.0-31.0); Mean Corpuscular Volume 92.8 fL (80.0-94.0); Platelet Count 147 10^3/uL (130-400); Red Blood Cell Count 4.19 10^6/uL (4.70-6.10); Red Cell Dist. Width 14.2 % (11.5-14.5); White Blood Cell Count 8.9 10^3/uL (4.8-10.8)
--- NOTE | 2024-06-16 04:00 | PTCARENOTE ---
systems reviewed, CHG bath, labs drawn, neuro checks per worklist, surgical site unchanged from previous assessment, otherwise refer to documentation
[2024-06-16 04:13] LABS: PT 14.1 Sec (11.4-14.6)
[2024-06-16 04:14] LABS: APTT 29.8 Sec (23.4-35.0)
[2024-06-16 04:22] LABS: Blood Urea Nitrogen 16 mg/dl (9-20); Calcium 8.3 mg/dl (8.4-10.2); Carbon Dioxide 23 mmol/L (22-30); Chloride 107 mmol/L (98-107); Estimated Creatinine Clearance 118 ml/min; Glucose 131 mg/dl (70-99); Potassium 4.4 mmol/L (3.5-5.1); Sodium 139 mmol/L (135-145); eGFR > 60.00
[2024-06-16 05:11] LABS: Hepatitis C Antibody Negative (Negative)
[2024-06-16] MEDS: KEFLEX 500 MG PO (07:33)
[2024-06-16] MEDS: LOW STRENGTH ASPIRIN 81 MG PO (07:33)
[2024-06-16] MEDS: ZETIA 10 MG PO (07:34)
[2024-06-16] MEDS: LOPRESSOR 12.5 MG PO (07:34)
[2024-06-16] MEDS: HEPARIN 5000 UNITS SC (07:35)
[2024-06-16] MEDS: FARXIGA 10 MG PO (07:36)
[2024-06-16 07:51] LABS: Glucose - Point of Care 106 mg/dl (70-99)
--- NOTE | 2024-06-16 07:58 | W.PN.VS ---
Addendum entered and electronically signed by Bienvenido Mcintosh III, MD 06/16/24 10:28:
This patient was seen and examined with SHE Lama. I agree with the history and physical exam as well as the assessment and plan. I have the following additions:
Looks great
Agree with plan
Signed:
Bienvenido Mcintosh III, MD
[facility] Surgery
[phone] (cell)
Original Note:
Today's Communication / Plan
-
Seen and assessed with Dr. Mcintosh
Assessment/Plan
-
POD #1 left CEA
Plan:
-DC A-line
-DC IV fluids
-Out of bed/ambulate
-Increase diet
-P.o. medications
-Likely DC later today
Subjective Data
-
Date of Service: June 16, 2024
Patient seen at bedside this a.m. with Dr. Mcintosh. Patient offers no complaints at this time. No events overnight. Vital signs stable. No drips overnight
Objective Data
-
Vital Signs
Temp Pulse Resp BP Pulse Ox
97.8 F 78 16 163/71 97
06/16/24 04:22 06/16/24 07:34 06/16/24 07:00 06/16/24 07:34 06/16/24 07:44
Intake and Output
06/15/24 06/16/24 06/17/24
06:59 06:59 06:59
Intake Total 2330 / 2410 80 / 80
Output Total 1525 / 2000 475 / 475
Balance 805 / 410 -395 / -395
Intake:
Oral fluids 840 / 840
IV fluids (Total) 1490 / 1570 80 / 80
Nss 1,000 ml @ 80 mls/hr IV . 1440 / 1520 80 / 80
[id number] STEF Rx#:[id number]
nss 50 / 50
Output:
Urine, Voided 1524 475 / 475
Lab Results
06/16/24 03:44
06/16/24 03:44
Calcium 8.3 mg/dl (8.4-10.2) L 06/16/24 03:44
Physical Exam
-
AAOx3
No tachycardia
No tachypnea on room air
Neck site clean, dry, intact, soft, flat
Moves all extremities equally
Tongue midline
--- NOTE | 2024-06-16 08:26 | W.PN.INTV ---
Today's Communication / Plan
Recommendations
Pain control
Up OOB as tolerated
Encourage incentive spirometer
SpO2 >90-94%
Patient being prepared for discharge home. [employer] Visiting Teacher/Pulmonary service will now sign off. Please reconsult if there are any additional questions/concerns, or if patient's respiratory status deteriorates.
Assessment
-
Assessment: 73-year-old male non-smoker with a past medical history of bilateral carotid artery stenosis who presents for carotid revascularization. Patient known to vascular surgery with Dr. Mcintosh, last office visit on 04/15/2024. Patient's prior
CTA neck performed on 12/03/2023 showed bilateral calcified plaque within each carotid bulb with approximately 50% stenosis. He has remained asymptomatic. Carotid endarterectomy was discussed including its risks and benefits. On 06/15/2024, he
underwent a left carotid endarterectomy with patch angioplasty using bovine pericardium. There were no immediate complications and he was transferred to the ICU postoperatively for further care. [employer] Visiting Teacher services consulted for additional
management/recommendations.
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
Impression:
#Asymptomatic high-grade stenosis of left internal carotid artery s/p left carotid endarterectomy with patch angioplasty using bovine pericardium (POD #1)
#Thrombocytopenia (mild and improving
#History of A-fib s/p ablation (03/2022)
#CAD
#Sick sinus syndrome
#Gout
Assessment:
Postoperative surgical intensive care unit monitoring
Supplemental oxygen as needed to maintain SpO2 >90-94%
prn nebulized bronchodilators - not currently bronchospastic
Incentive spirometry encouraged 10x per hour for at least 4 hrs a day
Aspiration precautions
Pain control
Neuro and vascular checks per protocol
Maintain MAP>65
Replete electrolytes with K>4, Mg>2
Maintain euglycemia with goal BG 140-180
Vascular surgery following-correspondence and operative notes reviewed
Transfuse blood products as needed to keep Hb>7g/dL, and plt>50k (given post-operative status)
DVT prophylaxis
Early nutrition
Early mobilization
Patient being prepared for discharge home. [employer] Visiting Teacher/Pulmonary service will now sign off. Thank you for allowing us to be involved in the care of this patient. Please reconsult if there are any additional questions/concerns, or if patient's
respiratory status deteriorates.
Total time spent today was 43 minutes for this encounter. Time includes reviewing laboratory test/imaging results, reviewing pertinent medical records, obtaining and reviewing medical history, performing an appropriate exam, ordering medications,
tests and procedures. Time also includes documentation of this encounter, coordinating patient care and communicating with other healthcare professionals. Total time does not include separately billed tests performed on this date of service.
Subjective Dataa
Subjective Data
Date of Service:
Date of Service: June 16, 2024
Chief Complaint: [employer] 12 Visiting Teacher Follow Up
Subjective:
Pt seen and evaluated this AM. No events reported overnight. Vitals this AM show: BP 120/67, HR 71. On room air breathing comfortably. He is being prepared for discharge home today.
Review of Systems
General: Other (negative unless mentioned above)
Objective Data
Data Reviewed
Vital Signs / I&O / Oxygen:
Vital Signs
Temp Pulse Resp BP Pulse Ox
97.7 F 77 22 163/71 94
06/16/24 08:24 06/16/24 08:00 06/16/24 08:00 06/16/24 07:34 06/16/24 08:00
Intake and Output
06/15/24 06/16/24 06/17/24
06:59 06:59 06:59
Intake Total 2330 / 2410 160 / 160
Output Total 1525 / 2000 475 / 475
Balance 805 / 410 -315 / -315
SaO2 94
Physical Exam
General: Respiratory Distress (negative) and Comfortable
HEENT: Normocephalic, Anicteric and Other (Left neck bandage)
Cardiovascular: S1-S2 and Peripheral Edema (negative)
Respiratory: Clear, Wheeze (negative), Crackles (negative), Rhonchi (negative) and Non-Labored Respirations
GI: Soft, Non Distended and Non Tender
Neurology: AO x 3 and Tremors (negative)
Skin: Warm, Dry, Cyanosis (negative) and Jaundice (negative)
Labs/Micro/Reports
Lab Data
06/16/24 03:44
06/16/24 03:44
Laboratory Results
06/16/24
03:44
PT 14.1
INR 1.10
APTT 29.8
[2024-06-16 09:03] VITALS: BP 120/67
--- NOTE | 2024-06-16 09:37 | CM ---
CM following re: discharge planning.
Reviewed pt's chart, met with pt.
Pt is a 73 year old male, admitted with primary dx of POD #1 left CEA. per vascular surgery pt most likely will be discharged afternoon. Pt is aware, expressed his agreement and he stated his spouse is coming to transport home. Pt has Medicare part
A as a second insurance. IMM reviewed, placed on chart, pt has a copy.
Pt reports he lives with spouse 2SH, 3 steps to enter, has no children. 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
PCP: Bienvenido Mas
Pharmacy: [facility]
D/C plan: home no needs. Spouse to transport.
[2024-06-16 10:00] VITALS: BP 104/61
--- NOTE | 2024-06-16 10:18 | PTCARENOTE ---
Rec'd care of patient at 0700. Patient alert and oriented. Neuro check wnl. Pupils equal and reactive, +3mm. Smile symmetrical, tongue midline. MAEx4. Left neck incision site intact. Minor swelling. Ice pack applied. NSR with first degree avb on
tele monitor. Lung sounds cta on RA. Voiding via urinal. Vascular surgery team at bedside. IVF dc'd. [place] removed. Patient oob to chair. Possible discharge home this afternoon.
--- NOTE | 2024-06-16 11:01 | W.DS.TRANS ---
DC Summary - Deck Mechanic
-
Discharge Instructions:
Discharge Diagnosis/Procedures LEFT carotid endarterectomy with patch
angioplasty using bovine pericardium
Diet As tolerated
Activity No strenuous activity
Driving Restrictions Not until seen by your Dr
Bathing Restrictions OK to Shower
Instructions:
Stand-Alone Forms: DC Instr - Vascular OR
Changes to Home Medications: No
Discharge Medications:
DC Medications w/original date entered in [facility]
empagliflozin 10 mg tablet (Jardiance) 10 mg PO DAILY Diabetes 12/02/23
ezetimibe 10 mg tablet 10 mg PO DAILY High Cholesterol 12/02/23
aspirin 81 mg chewable tablet (Children's Aspirin) 81 mg PO DAILY #30 tabs 12/07/23
atorvastatin 80 mg tablet 80 mg PO QPM #30 tabs 12/07/23
metoprolol tartrate 25 mg tablet 12.5 mg PO BID Heart Disease/Condition 06/08/24
cephalexin 500 mg capsule 500 mg PO BID Infection 06/15/24
Home Medication Changes
Pending Results: No
[2024-06-16 11:09] VITALS: BP 122/61
--- NOTE | 2024-06-16 11:12 | PTCARENOTE ---
Patient ambulatory in room ad [facility]. OOB since 829. Vitals stable. Discharge order placed.
--- NOTE | 2024-06-16 11:46 | PTCARENOTE ---
Discharge paperwork reviewed with patient and . IV access discontinued. Patient transported to car via wheelchair with belongings.
== END 2024-06-16 11:50 | disposition home or self-care (01) | DRG 38 ==
LOC: ICU 07:10
PROVIDERS: Nurse Practitioner; ADMITTING PHYSICIAN Surgery Vascular Surgery; CONSULT PHYSICIAN Internal Medicine Critical Care Medicine; FAMILY PHYSICIAN Family Medicine
PROC: 03CJ0ZZ Extirpation of Matter from Left Common Carotid Artery, Open Approach (ICD-10-PCS; 2024-06-15)
PROC: 03UJ0KZ Supplement Left Common Carotid Artery with Nonautologous Tissue Substitute, Open Approach (ICD-10-PCS; 2024-06-15)
DX: I65.22 Occlusion and stenosis of left carotid artery (principal); I48.19 Other persistent atrial fibrillation; D69.6 Thrombocytopenia, unspecified; I49.5 Sick sinus syndrome; M10.9 Gout, unspecified; I25.10 Atherosclerotic heart disease of native coronary artery without angina pectoris
CPT/HCPCS: 88304; 88311; 35301; 36415; 71046; 80048; 82962; 85025; 85027; 85610; 85730; 86803

== ENCOUNTER → 2024-07-16 09:24 | Outpatient (REF) | payer BC, SELFPAY | LOC: RAD 09:24 | PROVIDERS: ATTENDING PHYSICIAN Physician Assistant; FAMILY PHYSICIAN Family Medicine | DX: I65.22 Occlusion and stenosis of left carotid artery (principal) | CPT/HCPCS: 93880 ==

== ENCOUNTER → 2025-02-04 08:31 | Outpatient (REF) | payer BC, SELFPAY | LOC: DHVS 08:31 | PROVIDERS: ATTENDING PHYSICIAN Surgery Vascular Surgery | DX: I65.22 Occlusion and stenosis of left carotid artery (principal) | CPT/HCPCS: 93880 ==

== ENCOUNTER → 2025-08-10 06:55 | Outpatient (REF) | payer BC, SELFPAY | LOC: RAD 06:55 | PROVIDERS: ATTENDING PHYSICIAN Registered Nurse; FAMILY PHYSICIAN Nurse Practitioner | DX: I65.22 Occlusion and stenosis of left carotid artery (principal) | CPT/HCPCS: 93880 ==